=== PATIENT | male | born 1965 | race Caucasian/White ===

== ENCOUNTER → 2019-10-18 10:45 | Outpatient (BNVA) | payer MEDICAID, SELFPAY | PROVIDERS: Family Provider Nurse Practitioner; PCP Nurse Practitioner; Visit Provider Specialist | DX: G40.309 Generalized idiopathic epilepsy and epileptic syndromes, not intractable, without status epilepticus (principal); F17.210 Nicotine dependence, cigarettes, uncomplicated | CPT/HCPCS: 99213 ==

== ENCOUNTER → 2019-10-24 14:40 | Outpatient (BNVA) | payer OTHER, SELFPAY | PROVIDERS: Family Provider Nurse Practitioner; PCP Nurse Practitioner; Visit Provider Psychiatry & Neurology Psychiatry | DX: F41.1 Generalized anxiety disorder (principal) | CPT/HCPCS: 80061; 83036 ==

== ENCOUNTER → 2019-10-27 10:42 | Outpatient (BNVA) | payer MEDICAID, SELFPAY | PROVIDERS: Family Provider Nurse Practitioner; PCP Nurse Practitioner; Visit Provider Nurse Practitioner | DX: I10 Essential (primary) hypertension (principal); K21.9 Gastro-esophageal reflux disease without esophagitis; N40.0 Benign prostatic hyperplasia without lower urinary tract symptoms | CPT/HCPCS: 80053; 80061; 81003 ==

== ENCOUNTER → 2019-11-16 13:34 | Outpatient (BNVA) | payer MEDICAID, SELFPAY | PROVIDERS: Family Provider Nurse Practitioner; PCP Nurse Practitioner; Visit Provider Counselor Professional | DX: F41.1 Generalized anxiety disorder (principal); F43.12 Post-traumatic stress disorder, chronic; F33.1 Major depressive disorder, recurrent, moderate | CPT/HCPCS: 90834 ==

== ENCOUNTER → 2019-11-28 08:30 | Outpatient (BNVA) | payer MEDICAID, SELFPAY | PROVIDERS: Family Provider Nurse Practitioner; PCP Nurse Practitioner; Visit Provider Psychiatry & Neurology Psychiatry | DX: F43.9 Reaction to severe stress, unspecified (principal); F32.9 Major depressive disorder, single episode, unspecified | CPT/HCPCS: 99204 ==

== ENCOUNTER → 2019-11-29 10:49 | Outpatient (BNVA) | payer MEDICAID, SELFPAY | PROVIDERS: Family Provider Nurse Practitioner; PCP Nurse Practitioner; Visit Provider Nurse Practitioner | DX: K21.9 Gastro-esophageal reflux disease without esophagitis (principal); I10 Essential (primary) hypertension | CPT/HCPCS: 80053; 81000; 82607; 85025 ==

== ENCOUNTER → 2020-01-09 07:51 | Outpatient (BNVA) | payer MEDICAID, SELFPAY | PROVIDERS: Family Provider Nurse Practitioner; PCP Nurse Practitioner; Visit Provider Psychiatry & Neurology Psychiatry | DX: F43.9 Reaction to severe stress, unspecified (principal); F32.9 Major depressive disorder, single episode, unspecified | CPT/HCPCS: 99213 ==

== ENCOUNTER → 2020-06-04 10:20 | Outpatient (BNVA) | payer MEDICAID, SELFPAY ==
[2019-11-08 16:15] VITALS: BP 148/90; BMI 28.3
== END ==
PROVIDERS: Family Provider Nurse Practitioner; PCP Nurse Practitioner; Visit Provider Nurse Practitioner
DX: I10 Essential (primary) hypertension (principal)
CPT/HCPCS: 80053; 80061; 81000

== ENCOUNTER 2020-06-28 19:43 | Emergency (ER) | payer MEDICAID, SELFPAY ==
[2019-11-08 16:15] VITALS: BP 148/90; BMI 28.3
[2020-06-28 19:50] VITALS: PULSE 72; RESP 16; TEMP 36.7; O2SAT 95; BMI 26.4
--- NOTE | 2020-06-28 20:08 | W.ED.PSYCH ---
HPI - Psych General: Chief Complaint: Psychiatric Symptoms Stated Complaint: si Time Seen by Provider: 06/28/20 19:44 Source: patient and EMS Mode of arrival: EMS Limitations: no limitations History of Present Illness: HPI Narrative: Taz is a 55-year-old male who is here by EMS for depression. He states he sent a friend attacks and they called the police. Patient denies any active suicidal thoughts but states he has been depressed any has been out of his trazodone and Lexapro. Denies any worsening or improving factors. Associated symptoms: Reports depression Review of Systems Const: Denies: fever(s), chills, body aches or change in appetite Eyes: Denies: blurry vision or eye discomfort ENMT: Denies: throat pain or dental pain Card: Denies: chest pain Resp: Denies: dyspnea GI: Denies: abdominal pain, nausea, vomiting or diarrhea : Denies: dysuria Musc: Denies: neck pain or back pain Skin/Breast: Denies: rash Neuro: Denies: headache(s) Psych: Reports: depression Andreas/Lymph: Denies: easy bruising All/Imm: Denies: urticaria PFSH ED PFSH: Medical History BPH (benign prostatic hyperplasia) COPD (chronic obstructive pulmonary disease) Gastro-esophageal reflux disease without esophagitis Hepatitis C virus infection cured after antiviral drug therapy Hypertension Mixed hyperlipidemia Surgical History History of cataract extraction Both eyes Family History Mother , from MRSA No problems noted. Grandmother , cancer Cancer unknown type Grandfather , Emphysema Lung disease Emphysema Other CAD (coronary artery disease) Hypertension Stroke Denies family history of Diabetes Social History Smoking and tobacco status: current every day smoker cigarettes Quit status (tobacco): considering quitting Second hand smoke exposure: No Smoking risk assessment/counseling performed?: Yes Tobacco counseling given: counseling >3 minutes Alcohol intake: former Year of sobriety/quit date alcohol: 1987 Desire information about alcohol rehabilitation?: No Desire information about substance/drug rehabilitation?: No Adopted: No Caregiver/support person: No Lives independently: Yes Household members: none Housing: House Marital status: Single Number of children: 1 Number of grandchildren: 0 Highest education level completed: Associate Degree: Occupational, Technical, Vocational Program Education level details: Certification in [employer] service: No Current occupational status: disabled Current occupational exposures/hazards: No Pets and animals: Yes Pets & animals: cat(s) and dog(s) History of recent travel: No Leisure activites: exercise Sexually active: No Current gender identity: Male Leyla/Roman Catholic: Sabianist Special leyla needs: No Agree to transfusion: Yes Financial difficulty paying for basics: Somewhat Hard Physical Exam Const: COMMON NORMALS: no acute distress, patient oriented x3 and healthy appearing HENMT: COMMON NORMALS: normocephalic and atraumatic HEAD & SCALP: normocephalic and atraumatic Eye: COMMON NORMALS: Equal, round and reactive pupils present and EOMs intact bilaterally PUPIL: Yes Equal, round and reactive pupils present Neck/C-Spine: COMMON NORMALS: full ROM and supple Chest: COMMONS NORMALS: normal inspection of the chest and normal palpation of entire chest wall Resp: COMMON NORMALS: normal respiratory effort, No retractions, No use of accessory muscles and clear to auscultation bilaterally AUSCULTATION: clear to auscultation bilaterally Cardio: COMMON NORMALS: regular rate, regular rhythm and No murmurs present (Cardio) RATE: regular rate RHYTHM: regular rhythm GI: COMMON NORMALS: Normal to inspection, nondistended, normoactive bowel sounds present, Soft to palpation, non-tender and no masses PALPATION: Yes Soft to palpation Extremity: COMMON NORMALS: normal to inspection and full ROM Neuro: COMMON NORMALS: patient oriented x3, moves all extremities and no focal motor deficits Psych: COMMON NORMALS: mental status grossly normal, Normal thought process present and cooperative THOUGHT PROCESS: Normal thought process present Skin: COMMON NORMALS: no rashes or lesions noted and no wounds GENERAL SKIN EXAM: no rashes or lesions noted MDM - Psych MDM Narrative: Medical decision making narrative: Patient presents here with depression. Patient was seen by Dr. Ariel diaz in the ER patient is not actively suicidal and Dr. George feels he does not require admission. Will prescribe him his Lexapro and trazodone. He is to follow-up with his PCP and return to ER if he has any suicidal thoughts. Patient understands agrees this plan. Lab Data: Labs: Lab Results 06/28/20 06/28/20 Range/Units 20:21 20:21 WBC 12.4 H (4.0-10.0) 10^3/ uL RBC 4.74 (4.1-5.3) 10^6/u L Hgb 15.4 (11.7-16.6) g/dL Hct 47.2 (42.0-52.0) % MCV 99.6 H (80-94) fL MCH 32.5 (28.0-34.0) pg MCHC 32.6 (30.0-36.0) g/dL RDW 13.1 (12.1-15.1) % Plt Count 314 (130-400) 10^3/c mm MPV 9.8 (7.4-10.4) fL Neut % (Auto) 55.3 % Lymph % (Auto) 29.1 % [place] % (Auto) 10.5 % Eos % (Auto) 3.6 % Baso % (Auto) 0.9 % Neut # (Auto) 6.87 (1.8-7.7) 10^3/u L Lymph # (Auto) 3.6 (0.8-4.8) 10^3/u L [place] # (Auto) 1.3 H (0.2-0.9) 10^3/u L Eos # (Auto) 0.5 (0.0-0.8) 10^3/u L Baso # (Auto) 0.1 (0.0-0.1) 10^3/u L Nucleated RBC % (a uto) 0 % Nucleated RBCs # 0.0 /100WBC Sodium 143 (136-145) mmol/L Potassium 4.8 (3.5-5.1) mmol/L Chloride 110 H (98-107) mmol/L Carbon Dioxide 25 (22-29) mmol/L Anion Gap 12.8 (5-19) BUN 13 (6-20) mg/dL Creatinine 0.8 (0.7-1.2) mg/dL GFR Calculation 100.7 (90-130) mL/min Glucose 140 H (65-115) mg/dL Calculated Osmolal ity 298 H (285-295) mOsm/k g Calcium 9.2 (8.5-10.5) mg/dL Total Bilirubin 0.4 (0.15-1.2) mg/dL AST 26 (0-40) U/L ALT 16 (0-41) U/L Alkaline Phosphata se 88 (40-130) IU/L Total Protein 6.9 (6.6-8.7) g/dL Albumin 4.2 (3.5-5.2) g/dL Globulin 2.7 (1.3-4.6) g/dL Salicylates 1.6 L (3-10) mg/dL Acetaminophen < 5.0 L (10-30) ug/mL Ethyl Alcohol < 10 (0-10) mg/dL Discharge Plan Discharge Patient Disposition: Home Clinical Impression: Depression Qualifiers: Depression Type: unspecified Qualified Code(s): F32.9 - Major depressive disorder, single episode, unspecified Condition: Stable Prescriptions: New Lexapro 20 mg tablet 20 mg PO DAILY Qty: 30 RF: 0 trazodone 100 mg tablet 100 mg PO DAILY Qty: 30 RF: 0 No Action famotidine 40 mg tablet 40 mg PO DAILY Qty: 30 RF: 5 albuterol sulfate [ProAir HFA] 90 mcg/actuation HFA aerosol inhaler 2 puff INHALATION Q6H PRN (Reason: shortness of breath or wheezing) Qty: 18 RF: 5 lisinopril 5 mg tablet 5 mg PO DAILY Qty: 30 RF: 5 simvastatin 40 mg tablet 40 mg PO DAILY Qty: 30 RF: 5 tamsulosin [Flomax] 0.4 mg capsule 0.4 mg PO ONCE Qty: 30 RF: 5 trazodone 100 mg tablet 200 mg PO .HS Qty: 60 RF: 2 sertraline [Zoloft] 50 mg tablet 50 mg PO DAILY Qty: 30 RF: 2 levetiracetam [Keppra] 500 mg tablet 500 mg PO BID Qty: 60 RF: 6 zonisamide [Zonegran] 100 mg capsule 400 mg PO DAILY Qty: 120 RF: 5 Discharge Orders: Discharge Order (Routine); Ordered 06/28/20 Ordered By: Nilsa Mera Referrals: Arnol Robles, ACCOUNT LEADER-C [Primary Care Provider] - 1-3 days Patricio Aguilar MD [Physician] - 07/10/20 11:30 am Discharge Diet: Advance as tolerated Discharge Activity: Resume usual activity Patient Instructions: Depression (ED) Discharge Date/Time: 06/28/20 21:09 Coding Level of Care Code ED Grading Machine Operator for Chg Fwd Exam Comprehensive
[2020-06-28 20:41] LABS: Basophils # 0.1 10^3/uL (0.0-0.1); Basophils % 0.9 %; Eosinophils # 0.5 10^3/uL (0.0-0.8); Eosinophils % 3.6 %; Hematocrit 47.2 % (42.0-52.0); Hemoglobin 15.4 g/dL (11.7-16.6); Lymphocytes # 3.6 10^3/uL (0.8-4.8); Lymphocytes % 29.1 %; Mean Corpuscular HGB Conc 32.6 g/dL (30.0-36.0); Mean Corpuscular Hemoglobin 32.5 pg (28.0-34.0); Mean Corpuscular Volume 99.6 fL (80-94); Mean Platelet Volume 9.8 fL (7.4-10.4); Monocytes # 1.3 10^3/uL (0.2-0.9); Monocytes % 10.5 %; Neutrophils # 6.87 10^3/uL (1.8-7.7); Neutrophils % 55.3 %; Nucleated Red Blood Cells % 0 %; Platelet Count 314 10^3/cmm (130-400); Red Blood Count 4.74 10^6/uL (4.1-5.3); Red Cell Distribution Width 13.1 % (12.1-15.1); White Blood Count 12.4 10^3/uL (4.0-10.0)
[2020-06-28] MEDS: LORazepam 1 mg Tablet PO (20:58)
[2020-06-28 21:08] VITALS: PULSE 76; RESP 16; O2SAT 95
[2020-06-28 21:09] LABS: Alanine Aminotransferase 16 U/L (0-41); Albumin Level 4.2 g/dL (3.5-5.2); Alkaline Phosphatase 88 IU/L (40-130); Anion Gap 12.8 (5-19); Aspartate Amino Transferase 26 U/L (0-40); Blood Urea Nitrogen 13 mg/dL (6-20); Calcium 9.2 mg/dL (8.5-10.5); Carbon Dioxide 25 mmol/L (22-29); Chloride 110 mmol/L (98-107); Globulin 2.7 g/dL (1.3-4.6); Glomerular Filtration Rate 100.7 mL/min (90-130); Glucose 140 mg/dL (65-115); Osmolality Calculated 298 mOsm/kg (285-295); Potassium 4.8 mmol/L (3.5-5.1); Salicylate 1.6 mg/dL (3-10); Sodium 143 mmol/L (136-145); Total Bilirubin 0.4 mg/dL (0.15-1.2); Total Protein 6.9 g/dL (6.6-8.7)
[2020-06-28 21:17] LABS: Acetaminophen < 5.0 ug/mL (10-30); Alcohol Level < 10 mg/dL (0-10)
== END 2020-06-28 21:09 | disposition home or self-care (01) ==
PROVIDERS: Emergency Provider Emergency Medicine; Family Provider Nurse Practitioner; PCP Nurse Practitioner
DX: F32.9 Major depressive disorder, single episode, unspecified (principal); J44.9 Chronic obstructive pulmonary disease, unspecified; Z86.19 Personal history of other infectious and parasitic diseases; I10 Essential (primary) hypertension; E78.2 Mixed hyperlipidemia; F17.210 Nicotine dependence, cigarettes, uncomplicated
CPT/HCPCS: 12345; 80053; 80307; 85025; 99281; 99283

== ENCOUNTER → 2020-07-10 08:09 | Outpatient (BNVA) | payer MEDICAID, SELFPAY ==
[2019-11-08 16:15] VITALS: BP 148/90; BMI 28.3
== END ==
PROVIDERS: Family Provider Nurse Practitioner; PCP Nurse Practitioner; Visit Provider Psychiatry & Neurology Psychiatry
DX: F32.9 Major depressive disorder, single episode, unspecified (principal); F43.9 Reaction to severe stress, unspecified
CPT/HCPCS: 99213

== ENCOUNTER 2020-07-14 20:03 | Inpatient (IN) | payer MEDICAID, SELFPAY ==
[2019-11-08 16:15] VITALS: BP 148/90; BMI 28.3
[2020-07-14 20:07] VITALS: BP 133/89; PULSE 69; RESP 16; TEMP 36.7; O2SAT 96; BMI 26.7
[2020-07-14 20:39] LABS: Basophils # 0.1 10^3/uL (0.0-0.1); Basophils % 0.7 %; Eosinophils # 0.4 10^3/uL (0.0-0.8); Eosinophils % 2.3 %; Hematocrit 47.2 % (42.0-52.0); Hemoglobin 15.8 g/dL (11.7-16.6); Lymphocytes % 23.6 %; Mean Corpuscular HGB Conc 33.5 g/dL (30.0-36.0); Mean Corpuscular Hemoglobin 32.6 pg (28.0-34.0); Mean Corpuscular Volume 97.3 fL (80-94); Mean Platelet Volume 9.9 fL (7.4-10.4); Monocytes # 1.5 10^3/uL (0.2-0.9); Monocytes % 8.8 %; Neutrophils % 64.1 %; Nucleated Red Blood Cells % 0 %; Platelet Count 298 10^3/cmm (130-400); Red Blood Count 4.85 10^6/uL (4.1-5.3); Red Cell Distribution Width 12.7 % (12.1-15.1); White Blood Count 17.1 10^3/uL (4.0-10.0)
[2020-07-14 20:59] LABS: Alanine Aminotransferase 19 U/L (0-41); Albumin Level 4.3 g/dL (3.5-5.2); Alkaline Phosphatase 86 IU/L (40-130); Anion Gap 14.8 (5-19); Aspartate Amino Transferase 17 U/L (0-40); Blood Urea Nitrogen 13 mg/dL (6-20); Calcium 9.2 mg/dL (8.5-10.5); Carbon Dioxide 21 mmol/L (22-29); Chloride 107 mmol/L (98-107); Globulin 2.6 g/dL (1.3-4.6); Glomerular Filtration Rate 77.9 mL/min (90-130); Glucose 95 mg/dL (65-115); Osmolality Calculated 288 mOsm/kg (285-295); Potassium 3.8 mmol/L (3.5-5.1); Sodium 139 mmol/L (136-145); Total Bilirubin 0.2 mg/dL (0.15-1.2); Total Protein 6.9 g/dL (6.6-8.7)
[2020-07-14 21:08] LABS: Acetaminophen < 5.0 ug/mL (10-30); Alcohol Level < 10 mg/dL (0-10); Salicylate < 0.3 mg/dL (3-10)
--- NOTE | 2020-07-14 21:27 | XRR_ITS ---
PROCEDURE INFORMATION: Exam: XR Chest, 1 View Exam date and time: 07/14/2020 9:41 PM Age: 55 years old Clinical indication: Abnormal findings; Abnormal diagnostic tests; Other: Leukocytosis TECHNIQUE: Imaging protocol: XR of the chest Views: 1 view. COMPARISON: CR Chest 2 views* 10300 07/26/2017 10:50 PM FINDINGS: Lungs: A few linear opacities are present in the lung bases likely representing atelectasis. Increased peribronchial markings are seen, findings could represent mild bronchitis. Pleural space: Unremarkable. No pleural effusion. No pneumothorax. Heart/Mediastinum: Unremarkable. No cardiomegaly. Bones/joints: Unremarkable. XR/XR chest 1V [id number] IMPRESSION: 1. Increased peribronchial markings could represent bronchitis. 2. Linear opacities in the lower hemithoraces likely represents atelectasis.
--- NOTE | 2020-07-14 21:36 | W.ED.PSYCH ---
HPI - Psych General: Chief Complaint: Psychiatric Symptoms Stated Complaint: SI Time Seen by Provider: 07/14/20 20:28 History of Present Illness: HPI Narrative: 55-year-old gentleman with a history of depression. He was here last week in the ER and seen by psychiatry in the emergency department for depression. At that point, he was not suicidal. He comes back in this evening reporting having suicidal thoughts. He lost custody of his daughter had a hearing this week, and states he cannot live without her. He does not at this point have a specific plan. Associated symptoms: Deny auditory hallucinations or visual hallucinations Review of Systems Const: Denies: fever(s) or chills Eyes: Denies: change in vision ENMT: Denies: odynophagia, post nasal drip or sinus pain Card: Denies: chest pain, palpitations or irregular heart rhythm Resp: Denies: dyspnea, productive cough, non-productive cough or wheezing GI: Denies: abdominal pain, nausea or vomiting : Denies: difficulty urinating or hematuria Musc: Denies: neck pain or back pain Skin/Breast: Denies: rash or erythema Neuro: Denies: headache(s), dizziness, vertigo or seizure-like activity Psych: Reports: anxiety; Denies: visual hallucinations or auditory hallucinations PFSH ED PFSH: Medical History (Updated 07/14/20 @ 21:45 by Jose Maria Best DO) BPH (benign prostatic hyperplasia) COPD (chronic obstructive pulmonary disease) Gastro-esophageal reflux disease without esophagitis Hepatitis C virus infection cured after antiviral drug therapy Hypertension Mixed hyperlipidemia Surgical History History of cataract extraction Both eyes Family History Mother , from MRSA No problems noted. Grandmother , cancer Cancer unknown type Grandfather , Emphysema Lung disease Emphysema Other CAD (coronary artery disease) Hypertension Stroke Denies family history of Diabetes Social History Smoking and tobacco status: current every day smoker cigarettes Quit status (tobacco): considering quitting Second hand smoke exposure: No Smoking risk assessment/counseling performed?: Yes Tobacco counseling given: counseling >3 minutes Alcohol intake: former Year of sobriety/quit date alcohol: 1987 Desire information about alcohol rehabilitation?: No Desire information about substance/drug rehabilitation?: No Adopted: No Caregiver/support person: No Lives independently: Yes Household members: none Housing: House Marital status: Single Number of children: 1 Number of grandchildren: 0 Highest education level completed: Associate Degree: Occupational, Technical, Vocational Program Education level details: Certification in [employer] technology service: No Current occupational status: disabled Current occupational exposures/hazards: No Pets and animals: Yes Pets & animals: cat(s) and dog(s) History of recent travel: No Leisure activites: exercise Sexually active: No Current gender identity: Male Leyla/Pentecostal: Restorationism Special leyla needs: No Agree to transfusion: Yes Financial difficulty paying for basics: Somewhat Hard Physical Exam Const: GENERAL APPEARANCE: well developed ORIENTATION/CONSCIOUSNESS: Yes oriented to person, Yes oriented to place and Yes oriented to time HENMT: COMMON NORMALS: normocephalic, external ears normal and Normal external nose present HEAD & SCALP: normocephalic; no scalp tenderness FACE & SINUS: normal facial exam NOSE: Normal external nose present and No nasal discharge present EXTERNAL EAR: Yes external ears normal Eye: COMMON NORMALS: Equal, round and reactive pupils present, EOMs intact bilaterally and conjunctivae normal EYELID: eyelids normal CONJUNCTIVA: Yes conjunctivae normal PUPIL: Yes Equal, round and reactive pupils present Neck/C-Spine: GENERAL: No tracheal deviation Chest: COMMONS NORMALS: normal inspection of the chest CHEST: No tenderness Resp: COMMON NORMALS: clear to auscultation bilaterally EFFORT & INSPECTION: No tachypneic, No respiratory distress, No retractions, No uses accessory muscles and No tracheal deviation AUSCULTATION: clear to auscultation bilaterally, no rhonchi, no wheezes and lung sounds not diminished Cardio: COMMON NORMALS: regular rate and regular rhythm RATE: regular rate RHYTHM: regular rhythm HEART SOUNDS: no murmurs PERIPHERAL PULSES: radial pulses present GI: INSPECTION: No abdominal distension AUSCULTATION: No Hyperactive bowel sounds present and No Hypoactive bowel sounds present PALPATION: No Guarding due to palpation present (GI) and No Rigid due to palpation PERCUSSION: no dullness to percussion and no tympanic to percussion Neuro: SENSORIUM/ORIENTATION: Yes oriented to person, Yes oriented to place and Yes oriented to time Psych: COMMON NORMALS: speech normal APPEARANCE: Yes grossly normal ATTITUDE: Yes calm ACTIVITY/MOTOR BEHAVIOR: Yes appropriate eye contact SPEECH: Yes normal speech MOOD & AFFECT: Yes depressed mood THOUGHT PROCESS: No disorganized and No confused THOUGHT CONTENT: Yes Suicidality present ATTENTION/CONCENTRATION: Yes attention grossly intact and Yes concentration grossly intact MEMORY/COGNITION: Yes memory grossly intact and Yes cognition grossly intact INSIGHT: Fair insight present (Psych) JUDGEMENT: Fair judgement present (Psych) Skin: COMMON NORMALS: no rashes or lesions noted GENERAL SKIN EXAM: no rashes or lesions noted MDM - Psych MDM Narrative: Medical decision making narrative: Depression with suicidal ideation. This patient has a white blood cell count of 17, but without left shift. There is no evidence of infection, no history of fever, his chest x-ray is clear. Urine is pending. Discussed admission with psychiatry, they are willing to admit. Lab Data: Labs: Lab Results 07/14/20 07/14/20 Range/Units 20:24 20:24 WBC 17.1 H (4.0-10.0) 10^3/ uL RBC 4.85 (4.1-5.3) 10^6/u L Hgb 15.8 (11.7-16.6) g/dL Hct 47.2 (42.0-52.0) % MCV 97.3 H (80-94) fL MCH 32.6 (28.0-34.0) pg MCHC 33.5 (30.0-36.0) g/dL RDW 12.7 (12.1-15.1) % Plt Count 298 (130-400) 10^3/c mm MPV 9.9 (7.4-10.4) fL Neut % (Auto) 64.1 % Lymph % (Auto) 23.6 % [place] % (Auto) 8.8 % Eos % (Auto) 2.3 % Baso % (Auto) 0.7 % Neut # (Auto) 11.00 H (1.8-7.7) 10^3/u L Lymph # (Auto) 4.0 (0.8-4.8) 10^3/u L [place] # (Auto) 1.5 H (0.2-0.9) 10^3/u L Eos # (Auto) 0.4 (0.0-0.8) 10^3/u L Baso # (Auto) 0.1 (0.0-0.1) 10^3/u L Nucleated RBC % (a uto) 0 % Nucleated RBCs # 0.0 /100WBC Sodium 139 (136-145) mmol/L Potassium 3.8 (3.5-5.1) mmol/L Chloride 107 (98-107) mmol/L Carbon Dioxide 21 L (22-29) mmol/L Anion Gap 14.8 (5-19) BUN 13 (6-20) mg/dL Creatinine 1.0 (0.7-1.2) mg/dL GFR Calculation 77.9 L (90-130) mL/min Glucose 95 (65-115) mg/dL Calculated Osmolal ity 288 (285-295) mOsm/k g Calcium 9.2 (8.5-10.5) mg/dL Total Bilirubin 0.2 (0.15-1.2) mg/dL AST 17 (0-40) U/L ALT 19 (0-41) U/L Alkaline Phosphata se 86 (40-130) IU/L Total Protein 6.9 (6.6-8.7) g/dL Albumin 4.3 (3.5-5.2) g/dL Globulin 2.6 (1.3-4.6) g/dL Salicylates < 0.3 L (3-10) mg/dL Acetaminophen < 5.0 L (10-30) ug/mL Ethyl Alcohol < 10 (0-10) mg/dL Discharge Plan Discharge Patient Disposition: Admitted As Inpatient Admit Provider: Abrahan George Clinical Impression: Suicidal ideation Condition: Stable Referrals: Arnol Robles FNP-C [Primary Care Provider] - Discharge Date/Time: 07/14/20 22:20 Coding Level of Care Code ED Spring Winder for Teresag Fwd Exam Comprehensive
[2020-07-14 21:57] LABS: Add Urine Microscopic? NO
[2020-07-14 22:11] VITALS: BP 119/95; PULSE 73; RESP 16; TEMP 36.8; O2SAT 96
[2020-07-14 22:20] LABS: Glucose Urine UA Norm (Normal); Protein Urine Neg (Negative); Specific Gravity, Urine 1.025 (1.005-1.030); Urine Appearance Clear (CLEAR); Urine Color Yellow (Yellow); pH Urine 5 (5-7)
[2020-07-14 22:21] LABS: Bilirubin Urine Neg (Negative); Blood Urine Neg (Negative); Ketones Urine Negative (Negative); Leukocyte Esterase Urine Negative (Negative); Nitrate Urine Negative (Negative); Urobilinogen Urine 1 mg/dL (Negative)
[2020-07-14 22:27] VITALS: BP 131/94; PULSE 98; RESP 18; TEMP 37.2; O2SAT 98
--- NOTE | 2020-07-14 22:27 | PC.NURSE ---
called report to SETH Key in NPU
[2020-07-14 22:37] LABS: Amphetamines Screen Urine Negative (Negative); Barbiturates Screen Urine Negative (Negative); Benzodiazepines Screen Urine Negative (Negative); Cocaine Screen Urine Negative (Negative); Opiate Screen Urine Negative (Negative); PCP Screen Urine Negative (Negative); THC Screen Urine Negative (Negative)
[2020-07-14 23:05] VITALS: BP 131/94; PULSE 98; RESP 18; TEMP 37.2; O2SAT 98
[2020-07-14] MEDS: trazodone 100 mg Tablet 200 MG PO (23:25)
[2020-07-14] MEDS: hyDROXYzine 25 mg Capsule 50 MG PO (23:26)
[2020-07-14] MEDS: tamsulosin 0.4 mg Capsule PO (23:26)
--- NOTE | 2020-07-14 23:58 | PC.NURSE ---
Skin assessment revealed no wounds or abnormalities.
[2020-07-15 02:33] VITALS: PULSE 88; RESP 18; O2SAT 95
[2020-07-15 06:00] VITALS: BP 116/77; PULSE 89; RESP 18; TEMP 36.7; O2SAT 96
[2020-07-15 07:40] VITALS: PULSE 89; RESP 16; O2SAT 95
[2020-07-15] MEDS: zonisamide 100 MG Capsule 400 MG PO (07:49)
[2020-07-15] MEDS: lisinopril 5 mg Tablet PO (07:50)
[2020-07-15] MEDS: atorvastatin 40 mg Tablet 20 MG PO (07:50)
[2020-07-15] MEDS: levETIRAcetam 500 mg Tablet PO ×2 (07:50→19:44)
[2020-07-15] MEDS: famotidine 20 mg Tablet 40 MG PO (07:50)
[2020-07-15] MEDS: sertraline 50 mg Tablet PO (07:50)
[2020-07-15 13:03] VITALS: BP 112/68; PULSE 81; RESP 17; TEMP 36.5; O2SAT 96
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
[2020-07-15] MEDS: trazodone 100 mg Tablet 200 MG PO (19:44)
[2020-07-15 22:00] VITALS: BP 117/68; PULSE 69; RESP 17; TEMP 36.6; O2SAT 95
[2020-07-16 06:00] VITALS: BP 110/66; PULSE 61; RESP 17; TEMP 36.7; O2SAT 96
[2020-07-16] MEDS: sertraline 100 mg Tablet PO (08:30)
[2020-07-16] MEDS: atorvastatin 40 mg Tablet 20 MG PO (08:30)
[2020-07-16] MEDS: lisinopril 5 mg Tablet PO (08:30)
[2020-07-16] MEDS: levETIRAcetam 500 mg Tablet PO ×2 (08:30→19:44)
[2020-07-16] MEDS: zonisamide 100 MG Capsule 400 MG PO (08:30)
[2020-07-16] MEDS: famotidine 20 mg Tablet 40 MG PO (08:30)
[2020-07-16 14:00] VITALS: BP 113/77; PULSE 68; RESP 20; TEMP 36.9; O2SAT 96
--- NOTE | 2020-07-16 16:15 | PM.NPN ---
Subjective NPU Subjective: Interval history: Taz presents today reporting that he is doing much better than he was doing when he got here. He reports that he sees Dr. Aguilar as an outpatient. He was really struggling with these feelings surrounding custody and his daughter. But he reports he started thinking about other things that he values including his dogs and other family and friends. He reports he also was lifted up by conversations with people on the unit and the treatment providers. He also reports that seeing other people that have similar challenges was also inspiring for him to focus himself back on being well and doing the best that he can. He was desirous of discharge but we discussed the risk benefits and alternatives of working with the treatment team an additional day so that we can have a clear sense that he is safe for discharge. Mental Status Exam MSE Comments: This is a well-nourished, well-developed white male in hospital scrubs with limited grooming and eye contact. Very poor dentition. No abnormal movements except for mild psychomotor retardation. Cooperative with exam and no acute distress. Speech was decreased rate and volume. Mood described as much better, affect subdued. Thought process organized. Thought content: Patient denied any suicidal or homicidal ideations, there were no delusions reported or noted, he denied any auditory or visual hallucinations. Attention and concentration were intact and memory appeared reliable but none were formally tested. He was alert and oriented x3. Insight and judgment appear fair and impulse control limited. Vitals/I&O/Wt Last Vital Signs Temp 98.5 F 07/16/20 14:00 Pulse 68 07/16/20 14:00 Resp 20 H 07/16/20 14:00 BP 113/77 07/16/20 14:00 Pulse Ox 96 07/16/20 14:00 Weight last 48 hrs Weight 82.1 kg Weight 82.1 kg Data NPU : 07/14/20 20:24 07/14/20 20:24 A&P Assessment and plan (1) Suicidal ideation: Status: Resolved (2) COPD (chronic obstructive pulmonary disease): Status: Chronic (3) Major depressive disorder, single episode, unspecified: Status: Chronic (4) Trauma and stressor-related disorder: Status: Acute (5) Gastro-esophageal reflux disease without esophagitis: Status: Chronic (6) Mixed hyperlipidemia: Status: Chronic (7) BPH (benign prostatic hyperplasia): Status: Chronic Qualifiers: Lower urinary tract symptom detail: urinary hesitancy (8) Hypertension: Status: Chronic Qualifiers: Hypertension type: essential hypertension Qualified Code(s): I10 - Essential (primary) hypertension (9) Generalized epilepsy: Status: Acute Additional A&P Information This is a 55-year-old white male with a history of depression, PTSD and significant medical challenges who presents reporting a decrease in thoughts to harm himself with reported greater clarity about the importance of him staying alive. 1. Continue current medication. Patient adjusting to the recent increase in his Zoloft. 2. Continue every 15 minute checks for safety. 3. Encourage individual, group and milieu therapy. 4. We will evaluate for safety for discharge. Will consider discharge in the morning after consultation with treatment team. Involuntary Hold Information 96 Hour Hold: 96 Hour Involuntary Admission: No Attestations NPU Medical Necessity Statement*: Inpatient hospitalization is medically necessary and the clinically appropriate intervention at this time. We will monitor medications and make changes as indicated. Likely length of stay 1 to 2 days. Coding Level of Care Code Acute Sustainable Products Marketing Manager for [facility] Fwd Diagnoses Suicidal ideation R45.851 COPD (chronic obstructive pulmonary disease) J44.9 Major depressive disorder, single episode, unspecified F32.9 Trauma and stressor-related disorder F43.9 Gastro-esophageal reflux disease without esophagitis K21.9 Mixed hyperlipidemia E78.2 BPH (benign prostatic hyperplasia) N40.0 Lower urinary tract symptom detail: urinary hesitancy Hypertension I10 Hypertension type: essential hypertension Generalized epilepsy G40.309
--- NOTE | 2020-07-16 16:51 | PC.RESP ---
Smoking Cessation and Pulmonary Rehab information sent to patient.
[2020-07-16] MEDS: trazodone 100 mg Tablet 200 MG PO (19:43)
[2020-07-16 22:00] VITALS: BP 108/74; PULSE 79; RESP 16; TEMP 36.8; O2SAT 96
[2020-07-17 06:00] VITALS: BP 92/65; PULSE 73; RESP 17; TEMP 36.7; O2SAT 94
[2020-07-17] MEDS: sertraline 100 mg Tablet PO (08:14)
[2020-07-17] MEDS: atorvastatin 40 mg Tablet 20 MG PO (08:14)
[2020-07-17] MEDS: levETIRAcetam 500 mg Tablet PO (08:14)
[2020-07-17] MEDS: famotidine 20 mg Tablet 40 MG PO (08:14)
[2020-07-17] MEDS: zonisamide 100 MG Capsule 400 MG PO (08:15)
[2020-07-17 10:00] VITALS: PULSE 75; RESP 16; O2SAT 98
--- NOTE | 2020-07-17 14:55 | PM.NDC ---
Diagnoses at Discharge Discharge Diagnosis (1) Suicidal ideation: Status: Resolved (2) COPD (chronic obstructive pulmonary disease): Status: Chronic (3) Major depressive disorder, single episode, unspecified: Status: Chronic (4) Trauma and stressor-related disorder: Status: Acute (5) Gastro-esophageal reflux disease without esophagitis: Status: Chronic (6) Mixed hyperlipidemia: Status: Chronic (7) BPH (benign prostatic hyperplasia): Status: Chronic Qualifiers: Lower urinary tract symptom detail: urinary hesitancy (8) Hypertension: Status: Chronic Qualifiers: Hypertension type: essential hypertension Qualified Code(s): I10 - Essential (primary) hypertension (9) Generalized epilepsy: Status: Acute Reason for Visit Reason for Visit: SI Brief History: Taz presented to the emergency department with the following report: Chief Complaint: Psychiatric Symptoms Stated Complaint: SI Time Seen by Provider: 07/14/20 20:28 History of Present Illness: HPI Narrative: 55-year-old gentleman with a history of depression. He was here last week in the ER and seen by psychiatry in the emergency department for depression. At that point, he was not suicidal. He comes back in this evening reporting having suicidal thoughts. He lost custody of his daughter had a hearing this week, and states he cannot live without her. He does not at this point have a specific plan. Associated symptoms: Deny auditory hallucinations or visual hallucinations. He was admitted to the neuropsychiatric unit for definitive treatment of those issues. Taz presents today reporting that he is doing much better than he was doing when he got here. He reports that he sees Dr. Aguilar as an outpatient. He was really struggling with these feelings surrounding custody and his daughter. But he reports he started thinking about other things that he values including his dogs and other family and friends. He reports he also was lifted up by conversations with people on the unit and the treatment providers. He also reports that seeing other people that have similar challenges was also inspiring for him to focus himself back on being well and doing the best that he can. He was desirous of discharge but we discussed the risk benefits and alternatives of working with the treatment team an additional day so that we can have a clear sense that he is safe for discharge. Hospital Course Hospital Course Taz presented to the emergency department endorsing depression, suicidal thoughts and feeling overwhelmed against the backdrop of multiple medical comorbidities. He was admitted to the neuropsychiatric unit for definitive treatment of those issues. On the unit he quickly acclimated to the individual, group and milieu therapies provided. He had medication adjustments including the increasing of his Zoloft to 100 mg p.o. every morning. He was able to contract for safety and demonstrated a marked improvement. During the hospitalization he had routine laboratory studies which were within normal limits except for few outliers. Additionally there was a general medical evaluation which was also within normal limits and revealed no new acute processes. Discharge summary: At the time of discharge, he was absent lethality or psychosis. His mood and anxiety were well managed. He endorsed a plan to follow-up with outpatient resources per the treatment team's recommendations. He was evaluated and deemed to be absent credible lethality and had achieved a maximum benefit from an inpatient hospitalization, so he was discharged. Involuntary Hold Information 96 Hour Hold: 96 Hour Involuntary Admission: No Mental Status Exam MSE Comments: This is a well-nourished, well-developed white male in hospital scrubs with adequate grooming and eye contact. Very poor dentition. No abnormal movements except for improving psychomotor retardation. Cooperative with exam in no acute distress. Speech was more normal rate and volume. Mood described as better, affect less subdued. Thought process organized. Thought content: Patient denied any suicidal or homicidal ideations, there were no delusions reported or noted, he denied any auditory or visual hallucinations. Attention and concentration were intact and memory appeared reliable but none were formally tested. He was alert and oriented x3. Insight and judgment appear fair, and improving and impulse control limited. Discharge Data Data Completed and Pending: Completed Studies During Hospitalization Category Date Time Status XR chest 1V [id number] Stat Exams 07/14/20 21:27 Completed Vitals: Last Vital Signs Temp 98.1 F 07/17/20 06:00 Pulse 75 07/17/20 15:17 Resp 16 07/17/20 15:17 BP 92/65 07/17/20 06:00 Pulse Ox 98 07/17/20 15:17 Discharge Plan Discharge Patient Disposition: Home Condition: Stable Prescriptions: New sertraline 100 mg Tablet 100 mg PO DAILY 30 Days Qty: 30 RF: 1 Continued albuterol sulfate [ProAir HFA] 90 mcg/actuation HFA aerosol inhaler 2 puff INHALATION Q6H PRN (Reason: shortness of breath or wheezing) Qty: 18 RF: 5 lisinopril 5 mg tablet 5 mg PO DAILY Qty: 30 RF: 5 simvastatin 40 mg tablet 40 mg PO DAILY Qty: 30 RF: 5 tamsulosin [Flomax] 0.4 mg capsule 0.4 mg PO ONCE Qty: 30 RF: 5 levetiracetam [Keppra] 500 mg tablet 500 mg PO BID Qty: 60 RF: 6 zonisamide [Zonegran] 100 mg capsule 400 mg PO DAILY Qty: 120 RF: 5 trazodone 100 mg tablet 200 mg PO .HS Qty: 60 RF: 2 Pepcid 40 mg tablet 40 mg PO DAILY RF: 0 Discontinued sertraline [Zoloft] 50 mg tablet 50 mg PO DAILY Qty: 30 RF: 2 Discharge Orders: Discharge Order (Routine); Ordered 07/17/20 Ordered By: Abrahan George Referrals: Arnol Robles FNP-C [Primary Care Provider] - Patricio Aguilar MD [Physician] - 08/21/20 10:00 am (this appointment is for psychiatric medication management. a referral for individual therapy has been requested. ) Discharge Diet: Regular Discharge Activity: Resume usual activity Patient Instructions: Sertraline (By mouth), Anxiety (DC) Discharge Attestations NPU Time Spent in Discharge Care*: less than 30 min Specific Discharge Activities: Specific discharge activities: educating patient, discussing with bilingual patient support caseworker/social workers/dc planners, documenting/other paperwork and evaluating patient/reviewing data Coding Level of Care Code Acute Film Laboratory Technician for [facility] Fwd Diagnoses Suicidal ideation R45.851 COPD (chronic obstructive pulmonary disease) J44.9 Major depressive disorder, single episode, unspecified F32.9 Trauma and stressor-related disorder F43.9 Gastro-esophageal reflux disease without esophagitis K21.9 Mixed hyperlipidemia E78.2 BPH (benign prostatic hyperplasia) N40.0 Lower urinary tract symptom detail: urinary hesitancy Hypertension I10 Hypertension type: essential hypertension Generalized epilepsy G40.309
[2020-07-17 15:17] VITALS: PULSE 75; RESP 16; O2SAT 98
== END 2020-07-17 17:11 | disposition home or self-care (01) | DRG 881 ==
LOC: ER 21:45 → NP 22:01
PROVIDERS: Family Medicine; Admitting Provider Psychiatry & Neurology Psychiatry; PCP Nurse Practitioner; Visit Provider Psychiatry & Neurology Psychiatry
DX: F32.9 Major depressive disorder, single episode, unspecified (principal); R45.851 Suicidal ideations; J44.9 Chronic obstructive pulmonary disease, unspecified; K21.9 Gastro-esophageal reflux disease without esophagitis; E78.2 Mixed hyperlipidemia; N40.1 Benign prostatic hyperplasia with lower urinary tract symptoms; R39.11 Hesitancy of micturition; I10 Essential (primary) hypertension; G40.409 Other generalized epilepsy and epileptic syndromes, not intractable, without status epilepticus; F17.210 Nicotine dependence, cigarettes, uncomplicated
CPT/HCPCS: 12345; 71045; 80053; 80306; 80307; 81003; 85025; 99284

== ENCOUNTER → 2020-08-21 07:39 | Outpatient (BNVA) | payer MEDICAID, SELFPAY ==
[2019-11-08 16:15] VITALS: BP 148/90; BMI 28.3
== END ==
PROVIDERS: PCP Nurse Practitioner; Visit Provider Psychiatry & Neurology Psychiatry
DX: F32.9 Major depressive disorder, single episode, unspecified (principal); F43.9 Reaction to severe stress, unspecified
CPT/HCPCS: 99213

== ENCOUNTER → 2020-11-14 09:09 | Outpatient (BNVA) | payer MEDICAID, SELFPAY ==
[2019-11-08 16:15] VITALS: BP 148/90; BMI 28.3
== END ==
PROVIDERS: PCP Nurse Practitioner; Visit Provider Nurse Practitioner
DX: M54.5 Low back pain (principal); I10 Essential (primary) hypertension; E78.2 Mixed hyperlipidemia; J44.9 Chronic obstructive pulmonary disease, unspecified; N40.0 Benign prostatic hyperplasia without lower urinary tract symptoms; K59.01 Slow transit constipation
CPT/HCPCS: 74018; 80053; 80061; 81000; 85025

== ENCOUNTER → 2023-11-10 11:20 | Outpatient (BNVA) | payer MEDICAID, SELFPAY ==
[2023-10-29 14:47] VITALS: BP 148/90; BMI 28.3
== END ==
PROVIDERS: PCP Nurse Practitioner; Visit Provider Nurse Practitioner
DX: E78.2 Mixed hyperlipidemia (principal); M79.2 Neuralgia and neuritis, unspecified
CPT/HCPCS: 80053; 80061; 82607; 84443; 85025

== ENCOUNTER → 2024-07-07 13:38 | Outpatient (BNVA) | payer MEDICAID, SELFPAY ==
[2023-10-29 14:47] VITALS: BP 148/90; BMI 28.3
== END ==
PROVIDERS: PCP Nurse Practitioner; Visit Provider Nurse Practitioner Family
DX: K64.9 Unspecified hemorrhoids (principal)
CPT/HCPCS: 85025

== ENCOUNTER → 2024-10-04 08:40 | Outpatient (BNVA) | payer MEDICAID, SELFPAY ==
[2023-10-29 14:47] VITALS: BP 148/90; BMI 28.3
== END ==
PROVIDERS: PCP Nurse Practitioner; Visit Provider Surgery
DX: K64.9 Unspecified hemorrhoids (principal); R03.0 Elevated blood-pressure reading, without diagnosis of hypertension
CPT/HCPCS: 99204

== ENCOUNTER 2024-10-13 08:39 | Day surgery (SDC) | payer MEDICAID, SELFPAY ==
[2023-10-29 14:47] VITALS: BP 148/90; BMI 28.3
[2024-10-13 09:02] VITALS: BMI 29.9
[2024-10-13] MEDS: sodium chloride 0.9% 500 ML 15 ML IV (09:09)
[2024-10-13 09:10] VITALS: BP 126/88; PULSE 84; RESP 18; TEMP 36.7; O2SAT 95
--- NOTE | 2024-10-13 09:15 | P.HPUD_ITS ---
Surgery/Procedure H&P Update DATE OF PROCEDURE: October 13, 2024 DATE H&P PERFORMED: 10/04/24 H&P UPDATE INFORMATION: I have reviewed H&P completed within last 30 days, I have examined patient prior to procedure, No changes to prior documentation and H&P is in [facility] [place] on date indicated PLANNED PROCEDURE: Operation Date: 10/13/24 11:15 Proposed Procedures p EGD 57735, 73747, G0105, K64.9, R10.9(Not Applicable) - Severino Durbin MD s Colonoscopy(Not Applicable) - Severino Durbin MD
--- NOTE | 2024-10-13 11:12 | ANES.PREANE2 ---
Pre-Anesthetic Assessment Height/Weight: Height 1.75 m Weight 92.079 kg Temp Pulse Resp BP Pulse Ox O2 Del Method 98.1 F 84 18 126/88 95 Room Air 10/13/24 09:10 10/13/24 09:10 10/13/24 09:10 10/13/24 09:10 10/13/24 09:10 10/13/24 09:10 Operation Date: 10/13/24 11:15 Proposed Procedures p EGD 21703, 23745, G0105, K64.9, R10.9(Not Applicable) - Severino Durbin MD s Colonoscopy(Not Applicable) - Severino Durbin MD Familial anesthetic complications: None Was Beta Anne-Marie taken within 24 hours: N/A Was Clonidine taken within 24 hours: N/A Last intake: Intake Last Liquid Date 10/12/24 Last Liquid Time 21:00 Last Solid Date 10/11/24 Social No alcohol and No tobacco Exam alert, oriented x 3, clear to auscultation bilaterally and regular rate & rhythm Airway Mallampati: Class II Dentition: other (no teeth) Pulmonary Chronic Obstructive Pulmonary Disease CV/HEM Hypertension Neuropsych Seizure (grand mal seizures, last one > 1 months ago, took his medicine the morning) Anesthetic Plan ASA status: 3 Anesthesia: MAC Risk of > 500 ml blood loss (7ml/kg in children): No Medications/Allergies Home Medications Medication Instructions Recorded Confirmed Last Taken Type albuterol sulfate 90 mcg/actuation 2 puff inhalation Q6H PRN 11/10/23 10/11/24 10/11/24 Rx aerosol inhaler (ProAir HFA) shortness of breath or wheezing #18 grams famotidine 40 mg tablet (Pepcid) 40 mg PO DAILY #30 tabs 11/10/23 10/11/24 10/13/24 Rx tamsulosin 0.4 mg capsule (Flomax) 0.4 mg PO DAILY #30 caps 08/01/24 10/11/24 10/13/24 Rx zonisamide 100 mg capsule 100 mg PO Q12H #60 caps 08/01/24 10/11/24 10/13/24 Rx (Zonegran) Allergies Allergy/AdvReac Type Severity Reaction Status Date / Time insect venom Allergy Intermediate swelling Verified 10/11/24 09:02 Current Medications Generic Name Dose Route Start Last Admin Trade Name Freq PRN Reason Stop Dose Admin Sodium Chloride 500 mls @ 15 mls/hr 10/13/24 08:58 10/13/24 09:09 Sodium Chloride 0.9% IV 10/14/24 08:57 15 mls/hr .Q24H PRN Administration COLONOSCOPY FLUIDS PFSH Anesthesia Medical History Neuropathic pain Feet COPD (chronic obstructive pulmonary disease) Gastro-esophageal reflux disease without esophagitis Mixed hyperlipidemia BPH (benign prostatic hyperplasia) Hepatitis C virus infection cured after antiviral drug therapy Hypertension Surgical History (Updated 10/04/24 @ 08:[address]) History of cataract extraction Both eyes Family History Mother , from MRSA No problems noted. Grandmother , cancer Cancer unknown type Grandfather , Emphysema Lung disease Emphysema Other CAD (coronary artery disease) Hypertension Stroke Denies family history of Diabetes Social History Smoking and tobacco/nicotine status: former use of tobacco/nicotine (2023) Quit status (tobacco/nicotine): has quit using Year quit tobacco: 2023 Second hand smoke exposure: No Alcohol intake: former Year of sobriety/quit date alcohol: 1986 Substance/Drug Use: former Date of last use: 1990 Adopted: No Caregiver/support person: No Lives independently: No Household members: none Housing: House Marital status: Single Number of children: 1 Number of grandchildren: 0 Highest education level completed: Associate Degree: Occupational, Technical, Vocational Program Education level details: Certification in [employer] service: No Current occupational status: disabled Current occupational exposures/hazards: No Pets and animals: Yes Pets & animals: cat(s) and dog(s) Leisure activites: exercise Sexually active: No Do you think of yourself as: Straight/Heterosexual Current gender identity: Male Leyla/Buddhism: Yazdanism Special leyla needs: No Agree to transfusion: Yes Data Anesthesia Cardiac Studies: No Data to Display
[2024-10-13 12:17] VITALS: BP 133/85; PULSE 68; RESP 14; TEMP 36.3; O2SAT 94
[2024-10-13 12:32] VITALS: BP 134/92; PULSE 64; RESP 16; O2SAT 95
[2024-10-13 12:50] VITALS: BP 137/92; PULSE 61; RESP 17; O2SAT 95
--- NOTE | 2024-10-13 13:20 | ANE.PACU2 ---
Inpatient post-anesthesia follow up: Airway intact: Yes Vital signs: Temperature 97.3 F Pulse Rate 61 Respiratory Rate 17 Blood Pressure 137/92 Pulse Oximetry 95 Oxygen Delivery Me thod Room Air Oxygen Flow Rate 5 Fraction of Inspir ed Oxygen Hydration adequate: Yes Nausea and vomiting: No Pain level: 1 Mental status: Baseline
[2024-10-19 08:35] LABS: Mismatch Repari Proteins-IHC See Report
== END 2024-10-13 13:20 | disposition home or self-care (01) ==
PROVIDERS: Visit Provider Surgery
PROC: 0DJ08ZZ Inspection of Upper Intestinal Tract, Via Natural or Artificial Opening Endoscopic (ICD-10-PCS; principal; 2024-10-13 11:15)
PROC: 0DJD8ZZ Inspection of Lower Intestinal Tract, Via Natural or Artificial Opening Endoscopic (ICD-10-PCS; CPT 45378; 2024-10-13 11:15)
DX: C20 Malignant neoplasm of rectum (principal); D12.5 Benign neoplasm of sigmoid colon; J44.9 Chronic obstructive pulmonary disease, unspecified; I10 Essential (primary) hypertension; K21.9 Gastro-esophageal reflux disease without esophagitis; E78.2 Mixed hyperlipidemia; Z87.891 Personal history of nicotine dependence; K44.9 Diaphragmatic hernia without obstruction or gangrene; K29.70 Gastritis, unspecified, without bleeding; K29.80 Duodenitis without bleeding; K64.9 Unspecified hemorrhoids; Z79.899 Other long term (current) drug therapy
CPT/HCPCS: 43239; 45380; 45385; 88305; 88341; 88342; J7040

== ENCOUNTER 2024-10-14 08:11 | Outpatient (CLI) | payer MEDICAID, SELFPAY ==
[2023-10-29 14:47] VITALS: BP 148/90; BMI 28.3
[2024-10-14 08:39] LABS: Basophils # 0.1 10^3/uL (0.0-0.1); Basophils % 0.7 %; Eosinophils # 0.2 10^3/uL (0.0-0.8); Eosinophils % 1.8 %; Hematocrit 45.4 % (37-53); Lymphocytes % 31.7 %; Mean Corpuscular HGB Conc 32.8 g/dL (30-55); Mean Corpuscular Hemoglobin 30.8 pg (27-33); Mean Corpuscular Volume 93.8 fl (82-101); Mean Platelet Volume 9.3 fL (7.4-10.4); Monocytes # 1.5 10^3/uL (0.2-0.9); Monocytes % 11.7 %; Neutrophils # 6.82 10^3/uL (1.8-7.7); Neutrophils % 53.7 %; Nucleated Red Blood Cells % 0 %; Platelet Count 291 10^3/cmm (157-399); Red Blood Count 4.84 10^6/uL (3.85-5.65); Red Cell Distribution Width 12.2 % (12.1-15.1)
[2024-10-14 09:04] LABS: Carcinoembryonic Antigen 2.1 ng/mL (0.0-4.7)
[2024-10-14 09:18] LABS: Anion Gap 15.1 (5-19); Blood Urea Nitrogen 14 mg/dL (6-20); Calcium 8.5 mg/dL (8.5-10.5); Carbon Dioxide 23 mmol/L (22-29); Chloride 103 mmol/L (98-107); Glomerular Filtration Rate 86.7 mL/min (90-130); Glucose 92 mg/dL (65-115); Osmolality Calculated 284 mOsm/kg (285-295); Potassium 4.1 mmol/L (3.5-5.1); Sodium 137 mmol/L (136-145)
== END 2024-10-14 08:12 | disposition home or self-care (01) ==
LOC: LAB 08:12
PROVIDERS: Visit Provider Surgery
DX: Z51.81 Encounter for therapeutic drug level monitoring (principal); Z79.1 Long term (current) use of non-steroidal anti-inflammatories (NSAID); C20 Malignant neoplasm of rectum
CPT/HCPCS: 36415; 80048; 82378; 85025

== ENCOUNTER 2024-12-12 09:00 | Oncology outpatient (recurring) (ONCR) | payer MEDICAID, SELFPAY ==
[2023-10-29 14:47] VITALS: BP 148/90; BMI 28.3
[2024-12-12 09:19] LABS: Basophils # 0.1 10^3/uL (0.0-0.1); Basophils % 0.8 %; Eosinophils # 0.3 10^3/uL (0.0-0.8); Eosinophils % 2.7 %; Hematocrit 45.6 % (37-53); Lymphocytes # 3.9 10^3/uL (0.8-4.8); Lymphocytes % 33.6 %; Mean Corpuscular HGB Conc 33.1 g/dL (30-55); Mean Corpuscular Hemoglobin 31.1 pg (27-33); Mean Corpuscular Volume 93.8 fl (82-101); Mean Platelet Volume 9.2 fL (7.4-10.4); Monocytes % 8.7 %; Neutrophils # 6.21 10^3/uL (1.8-7.7); Neutrophils % 53.7 %; Nucleated Red Blood Cells % 0 %; Platelet Count 278 10^3/cmm (157-399); Red Blood Count 4.86 10^6/uL (3.85-5.65); Red Cell Distribution Width 12.5 % (12.1-15.1); White Blood Count 11.57 10^3/uL (3.29-11.43)
[2024-12-12 09:33] LABS: Alanine Aminotransferase 16 U/L (0-41); Alkaline Phosphatase 72 U/L (40-130); Anion Gap 15.2 (5-19); Aspartate Amino Transferase 12 U/L (0-40); Blood Urea Nitrogen 14 mg/dL (6-20); Calcium 8.9 mg/dL (8.5-10.5); Carbon Dioxide 23 mmol/L (22-29); Chloride 104 mmol/L (98-107); Globulin 2.6 g/dL (1.3-4.6); Glomerular Filtration Rate 99.3 mL/min (90-130); Glucose 104 mg/dL (65-115); Osmolality Calculated 287 mOsm/kg (285-295); Potassium 4.2 mmol/L (3.5-5.1); Sodium 138 mmol/L (136-145); Total Bilirubin 0.3 mg/dL (0.15-1.2); Total Protein 6.6 g/dL (6.6-8.7)
== END 2024-12-12 23:59 | disposition home or self-care (01) ==
PROVIDERS: PCP Nurse Practitioner Family; Visit Provider Internal Medicine Medical Oncology
DX: Z53.9 Procedure and treatment not carried out, unspecified reason (principal); C20 Malignant neoplasm of rectum; Z87.891 Personal history of nicotine dependence
CPT/HCPCS: 36591; 80053; 85025; 99214

== ENCOUNTER 2025-01-10 09:15 | Oncology outpatient (recurring) (ONCR) | payer MEDICAID, SELFPAY ==
[2023-10-29 14:47] VITALS: BP 148/90; BMI 28.3
[2025-01-02 14:03] LABS: Basophils # 0.1 10^3/uL (0.0-0.1); Basophils % 0.8 %; Eosinophils # 0.4 10^3/uL (0.0-0.8); Hematocrit 42.5 % (37-53); Lymphocytes # 4.1 10^3/uL (0.8-4.8); Lymphocytes % 33.5 %; Mean Corpuscular HGB Conc 33.9 g/dL (30-55); Mean Corpuscular Hemoglobin 31.4 pg (27-33); Mean Corpuscular Volume 92.8 fl (82-101); Mean Platelet Volume 9.2 fL (7.4-10.4); Monocytes # 1.1 10^3/uL (0.2-0.9); Monocytes % 9.1 %; Neutrophils # 6.47 10^3/uL (1.8-7.7); Nucleated Red Blood Cells % 0 %; Platelet Count 280 10^3/cmm (157-399); Red Blood Count 4.58 10^6/uL (3.85-5.65); Red Cell Distribution Width 12.5 % (12.1-15.1); White Blood Count 12.19 10^3/uL (3.29-11.43)
[2025-01-02 14:21] LABS: Alanine Aminotransferase 15 U/L (0-41); Alkaline Phosphatase 80 U/L (40-130); Anion Gap 12.4 (5-19); Aspartate Amino Transferase 14 U/L (0-40); Blood Urea Nitrogen 9 mg/dL (6-20); Calcium 8.2 mg/dL (8.5-10.5); Carbon Dioxide 24 mmol/L (22-29); Chloride 100 mmol/L (98-107); Creatinine Clr Calc Pharmacy 113.5985; Globulin 2.3 g/dL (1.3-4.6); Glomerular Filtration Rate 99.3 mL/min (90-130); Glucose 142 mg/dL (65-115); Osmolality Calculated 277 mOsm/kg (285-295); Potassium 3.4 mmol/L (3.5-5.1); Sodium 133 mmol/L (136-145); Total Bilirubin 0.2 mg/dL (0.15-1.2); Total Protein 6.3 g/dL (6.6-8.7)
[2025-01-03 08:22] VITALS: BP 158/93; PULSE 66; RESP 17; TEMP 36.9; O2SAT 97
[2025-01-03] MEDS: dextrose 5% 250 ML 75 ML IV (08:46)
[2025-01-03] MEDS: dexamethasone 4 mg/mL INJ 5 mL 12 MG IVP (08:46)
[2025-01-03] MEDS: palonosetron 0.25 mg/5 mL SDV IVP (08:46)
[2025-01-03] MEDS: oxaliplatin 176 MG in dextrose 5% 250 ML 142.6 MG IV (09:18)
[2025-01-03] MEDS: leucovorin 830 MG in dextrose 5% 250 ML 62.5 MG IV (09:19)
[2025-01-03 09:42] VITALS: BP 145/81; PULSE 62; RESP 17; TEMP 36.8; O2SAT 97
[2025-01-03 10:28] VITALS: BP 135/80; PULSE 60; RESP 17; TEMP 36.7; O2SAT 97
[2025-01-03] MEDS: fluorouraciL 50 mg/ml MDV 100 mL 850 MG IVP (12:12)
[2025-01-03] MEDS: ELASTOMERIC PUMP PUMP IV (12:13)
[2025-01-03] MEDS: FLUOROURACIL IV (12:13)
[2025-01-03 12:32] VITALS: BP 146/77; PULSE 75; RESP 17; TEMP 36.6; O2SAT 97
[2025-01-10 09:45] LABS: Basophils # 0.1 10^3/uL (0.0-0.1); Basophils % 0.5 %; Eosinophils # 0.6 10^3/uL (0.0-0.8); Eosinophils % 6.4 %; Hematocrit 42.6 % (37-53); Lymphocytes # 3.7 10^3/uL (0.8-4.8); Lymphocytes % 37.9 %; Mean Corpuscular Hemoglobin 31.4 pg (27-33); Mean Corpuscular Volume 92.2 fl (82-101); Mean Platelet Volume 9.3 fL (7.4-10.4); Monocytes % 9.8 %; Neutrophils # 4.41 10^3/uL (1.8-7.7); Neutrophils % 44.8 %; Nucleated Red Blood Cells % 0 %; Platelet Count 222 10^3/cmm (157-399); Red Blood Count 4.62 10^6/uL (3.85-5.65); Red Cell Distribution Width 12.4 % (12.1-15.1); White Blood Count 9.85 10^3/uL (3.29-11.43)
[2025-01-10 10:03] LABS: Alanine Aminotransferase 18 U/L (0-41); Albumin Level 3.8 g/dL (3.5-5.2); Alkaline Phosphatase 76 U/L (40-130); Anion Gap 11.7 (5-19); Aspartate Amino Transferase 14 U/L (0-40); Blood Urea Nitrogen 15 mg/dL (6-20); Calcium 8.4 mg/dL (8.5-10.5); Carbon Dioxide 25 mmol/L (22-29); Chloride 101 mmol/L (98-107); Creatinine Clr Calc Pharmacy 112.5655; Globulin 2.5 g/dL (1.3-4.6); Glomerular Filtration Rate 99.3 mL/min (90-130); Glucose 106 mg/dL (65-115); Osmolality Calculated 279 mOsm/kg (285-295); Potassium 3.7 mmol/L (3.5-5.1); Sodium 134 mmol/L (136-145); Total Bilirubin 0.4 mg/dL (0.15-1.2); Total Protein 6.3 g/dL (6.6-8.7)
== END 2025-01-11 23:59 | disposition home or self-care (01) ==
PROVIDERS: Internal Medicine Medical Oncology; Nurse Practitioner Family; PCP Nurse Practitioner Family; Visit Provider Internal Medicine
DX: Z53.9 Procedure and treatment not carried out, unspecified reason; C20 Malignant neoplasm of rectum; Z87.891 Personal history of nicotine dependence; Z79.899 Other long term (current) drug therapy
CPT/HCPCS: 36591; 80053; 85025; 96375; 96409; 96413; 96415; 96416; 96523; 99214; 99215; J0640; J1100; J2469; J7060; J9190; J9263

== ENCOUNTER 2025-02-01 12:37 | Emergency (ER) | payer MEDICAID, SELFPAY ==
[2023-10-29 14:47] VITALS: BP 148/90; BMI 28.3
[2025-02-01 12:48] VITALS: BP 138/93; PULSE 89; RESP 16; TEMP 37.7; O2SAT 97
--- NOTE | 2025-02-01 14:26 | W.ED.RECABL ---
HPI - Recheck/Abnormal Lab/Rx General: Chief Complaint: Recheck/Abnormal Lab/Rx Stated Complaint: blood clot in neck Time Seen by Provider: 02/01/25 14:14 History of Present Illness: 59-year-old man with a history of rectal cancer who had surgery back in November and is now receiving chemotherapy who presents to the emergency room from radiology after it was discovered that he has a blood clot in his right jugular. He had been to [facility] in they did not find anything but then he went to get treatment today and they saw his neck was swollen and sent in for a CTA of his neck and chest. Concerned that this may be related to his port. He has had some cough with this. No headaches. Swelling on the right side of the neck. Minimal swelling down the shoulder. No shortness of breath. He is able to swallow. Related Data Home Medications ?Medication ?Instructions ?Recorded ?Confirmed albuterol sulfate 90 mcg/actuation 2 puff inhalation Q6H 02/01/25 02/01/25 aerosol inhaler Previous Rx's ?Medication ?Instructions ?Recorded polyethylene glycol 3350 17 gram 17 g PO DAILY #30 ea 10/13/24 oral powder packet (Miralax) famotidine 40 mg tablet (Pepcid) 40 mg PO DAILY #30 tabs 11/15/24 tamsulosin 0.4 mg capsule (Flomax) 0.4 mg PO DAILY #30 caps 11/15/24 lorazepam 1 mg tablet 0.5 - 1 mg (0.5 - 1 x 1 mg) PO Q6H 12/13/24 PRN severe nausea #30 tabs ondansetron HCl 4 mg tablet 4 mg PO Q6H PRN nausea and 12/13/24 vomiting #30 tabs prochlorperazine maleate 10 mg 10 mg PO Q4H PRN mild nausea #30 12/13/24 tablet (Compazine) tabs omeprazole 20 mg capsule,delayed 20 mg PO DAILY #30 caps 01/30/25 release apixaban 5 mg (74 tabs) tablets in 5 mg PO BID #74 ea 02/01/25 a dose pack (Eliquis DVT-PE Treat 30D Start) hydrocodone 5 mg-acetaminophen 325 1 tab PO Q6H PRN pain #20 tabs 02/01/25 mg tablet polyethylene glycol 3350 17 17 g PO DAILY #510 grams 02/01/25 gram/dose oral powder (Miralax) Allergies Allergy/AdvReac Type Severity Reaction Status Date / Time insect venom Allergy Intermediate swelling Verified 02/01/25 08:08 Review of Systems Narrative: Constitutional symptoms: Negative except as documented in HPI. Skin symptoms: Negative except as documented in HPI. Eye symptoms: Negative except as documented in HPI. ENMT symptoms: Negative except as documented in HPI. Respiratory symptoms: Negative except as documented in HPI. Cardiovascular symptoms: Negative except as documented in HPI. Gastrointestinal symptoms: Negative except as documented in HPI. Genitourinary symptoms: Negative except as documented in HPI. Musculoskeletal symptoms: Negative except as documented in HPI. Neurologic symptoms: Negative except as documented in HPI. Psychiatric symptoms: Negative except as documented in HPI. Endocrine symptoms: Negative except as documented in HPI. PFSH ED PFSH: Medical History Neuropathic pain Feet COPD (chronic obstructive pulmonary disease) Gastro-esophageal reflux disease without esophagitis Mixed hyperlipidemia BPH (benign prostatic hyperplasia) Hepatitis C virus infection cured after antiviral drug therapy Hypertension Surgical History History of cataract extraction Both eyes Family History Mother , from MRSA No problems noted. Grandmother , cancer Cancer unknown type Grandfather , Emphysema Lung disease Emphysema Other CAD (coronary artery disease) Hypertension Stroke Denies family history of Diabetes Social History Smoking and tobacco/nicotine status: former use of tobacco/nicotine Second hand smoke exposure: No Alcohol intake: former Year of sobriety/quit date alcohol: 1986 Substance/Drug Use: former Date of last use: 1990 Adopted: No Caregiver/support person: No Lives independently: No Household members: none Housing: House Marital status: Single Number of children: 1 Number of grandchildren: 0 Highest education level completed: Associate Degree: Occupational, Technical, Vocational Program Education level details: Certification in Telik service: No Current occupational status: disabled Current occupational exposures/hazards: No Pets and animals: Yes Pets & animals: cat(s) and dog(s) Leisure activites: exercise Sexually active: No Do you think of yourself as: Straight/Heterosexual Current gender identity: Male Leyla/Judaism: Anabaptist Special leyla needs: No Agree to transfusion: Yes Physical Exam Narrative: EXAM NARRATIVE: General: Alert, no acute distress. Skin: Warm, dry. Head: Normocephalic, atraumatic. Neck: Supple, trachea midline. Edema to the right side of the jaw and neck. Eye: Extraocular movements are intact. Ears, nose, mouth and throat: mucosa moist. Cardiovascular: Regular, Normal peripheral perfusion. Respiratory: Lungs are clear to auscultation, respirations are non-labored, breath sounds are equal, Symmetrical chest wall expansion. Gastrointestinal: Soft, Nontender, Non distended Musculoskeletal: Normal ROM, no deformity. Neurological: Alert and oriented, No focal neurological deficit observed. Psychiatric: Cooperative, appropriate mood & affect. Course Vital Signs: Vital signs: Vital Signs Temperature 99.9 F H 02/01/25 12:48 Pulse Rate 82 02/01/25 14:31 Respiratory Rate 17 02/01/25 14:31 Blood Pressure 125/94 02/01/25 14:31 Pulse Oximetry 97 02/01/25 14:31 Oxygen Delivery Me thod Room Air 02/01/25 12:48 MDM - Recheck/Abnormal Lab/Rx Medical Decision Making CTA of the neck: This was done earlier today. Shows jugular thrombosis and surrounding edema. This was reviewed and interpreted by myself the emergency room physician. I also reviewed the radiology report. Consultation: I spoke with Dr. Jackson who is on-call for oncology and is this patient's oncologist. He recommends consultation with vascular surgery. Consultation: I spoke with Dr. Rosen with vascular surgery at [facility]. He recommends conservative management with anticoagulation and follow-up next week. He says recommendations are to not remove the port initially. And just to anticoagulate.\ Consultation: I spoke again with Dr. Grande who agrees with plan to send the patient home on anticoagulation and follow with vascular surgery. Lab review: I reviewed and interpreted lab work personally. No leukocytosis. More importantly no leukopenia. No anemia. No renal failure. Reexamination: Patient remained stable. No increased work of breathing. No altered mental status. No focal motor deficits. Assessment and plan: Jugular vein thrombosis ?First dose Eliquis in the emergency room. Providing with some pain medication for now. - Discharged home - Discussed plan with patient. Answered any questions. - Evaluation and treatment of this problem were appropriate in the emergency setting. Lab Data 02/01/25 14:39 02/01/25 14:39 Laboratory Results WBC 10.92 10^3/uL (3.29-11.43) 02/01/25 14:39 RBC 4.49 10^6/uL (3.85-5.65) 02/01/25 14:39 Hgb 14.10 g/dL (11.27-16.99) 02/01/25 14:39 Hct 42.1 % (37-53) 02/01/25 14:39 MCV 93.8 fl (82-101) 02/01/25 14:39 MCH 31.4 pg (27-33) 02/01/25 14:39 MCHC 33.5 g/dL (30-55) 02/01/25 14:39 RDW 12.7 % (12.1-15.1) 02/01/25 14:39 Plt Count 235 10^3/cmm (157-399) 02/01/25 14:39 MPV 9.1 fL (7.4-10.4) 02/01/25 14:39 Neut % (Auto) 44.0 % 02/01/25 14:39 Lymph % (Auto) 30.7 % 02/01/25 14:39 Evangeline % (Auto) 22.3 % 02/01/25 14:39 Eos % (Auto) 1.6 % 02/01/25 14:39 Baso % (Auto) 0.5 % 02/01/25 14:39 Neut # (Auto) 4.81 10^3/uL (1.8-7.7) 02/01/25 14:39 Lymph # (Auto) 3.4 10^3/uL (0.8-4.8) 02/01/25 14:39 Evangeline # (Auto) 2.4 10^3/uL (0.2-0.9) H 02/01/25 14:39 Eos # (Auto) 0.2 10^3/uL (0.0-0.8) 02/01/25 14:39 Baso # (Auto) 0.1 10^3/uL (0.0-0.1) 02/01/25 14:39 Nucleated RBC % (auto) 0 % 02/01/25 14:39 Nucleated RBCs # 0.0 /100WBC 02/01/25 14:39 PT 13.00 SECONDS (12.1-14.9) 02/01/25 14:39 INR 0.91 (0.8-1.2) 02/01/25 14:39 APTT 26.8 SECONDS (23.9-36.7) 02/01/25 14:39 Sodium 133 mmol/L (136-145) L 02/01/25 14:39 Potassium 4.1 mmol/L (3.5-5.1) 02/01/25 14:39 Chloride 100 mmol/L (98-107) 02/01/25 14:39 Carbon Dioxide 21 mmol/L (22-29) L 02/01/25 14:39 Anion Gap 16.1 (5-19) 02/01/25 14:39 BUN 10 mg/dL (6-20) 02/01/25 14:39 Creatinine 0.9 mg/dL (0.7-1.2) 02/01/25 14:39 GFR Calculation 86.7 mL/min (90-130) L 02/01/25 14:39 Glucose 97 mg/dL (65-115) 02/01/25 14:39 Calculated Osmolality 275 mOsm/kg (285-295) L 02/01/25 14:39 Lactic Acid 0.8 mmol/L (0.5-2.2) 02/01/25 14:39 Calcium 8.5 mg/dL (8.5-10.5) 02/01/25 14:39 Total Bilirubin 0.6 mg/dL (0.15-1.2) 02/01/25 14:39 AST 16 U/L (0-40) 02/01/25 14:39 ALT 18 U/L (0-41) 02/01/25 14:39 Alkaline Phosphatase 88 U/L (40-130) 02/01/25 14:39 C-Reactive Protein 31.7 mg/L (0.0-4.9) H 02/01/25 14:39 Total Protein 6.4 g/dL (6.6-8.7) L 02/01/25 14:39 Albumin 3.6 g/dL (3.5-5.2) 02/01/25 14:39 Globulin 2.8 g/dL (1.3-4.6) 02/01/25 14:39 All radiology interpretation(s) finalized by discharge Discharge Plan Discharge Patient Disposition: Home Clinical Impression: Acute internal jugular vein thrombosis Condition: Stable Prescriptions: New hydrocodone-acetaminophen 5-325 mg tablet 1 tab PO Q6H PRN (Reason: pain) Qty: 20 0RF polyethylene glycol 3350 [Miralax] 17 gram/dose powder 17 g PO DAILY Qty: 510 0RF Rx Instructions: Take 1 scoop daily while taking pain medications. Eliquis DVT-PE Treat 30D Start 5 mg (74 tabs) tablets,dose pack 5 mg PO BID Qty: 74 0RF Rx Instructions: 2 tabs (10 mg) BID x 7 days, then 1 tab BID No Action Pepcid 40 mg tablet 40 mg PO DAILY Qty: 30 5RF tamsulosin [Flomax] 0.4 mg capsule 0.4 mg PO DAILY Qty: 30 2RF ondansetron HCl 4 mg tablet 4 mg PO Q6H PRN (Reason: nausea and vomiting) Qty: 30 3RF prochlorperazine maleate [Compazine] 10 mg tablet 10 mg PO Q4H PRN (Reason: mild nausea) Qty: 30 3RF lorazepam 1 mg tablet 0.5 - 1 mg PO Q6H PRN (Reason: severe nausea) Qty: 30 3RF omeprazole 20 mg capsule,delayed release(DR/EC) 20 mg PO DAILY Qty: 30 0RF polyethylene glycol 3350 [Miralax] 17 gram powder in packet 17 g PO DAILY Qty: 30 2RF albuterol sulfate 90 mcg/actuation HFA aerosol inhaler 2 puff INHALATION Q6H Discharge Orders: Discharge ED (Routine); Ordered 02/01/25 Ordered By: America Callejas Referrals: Deni Javed MD [Hospitalist, Oncology] - 7-10 days Referral Note: Please call for follow-up visit. Kiran Rubio FNP [Primary Care Provider, Family Practice] Jim Rosen MD [Occupational Therapist, General Surgery] Referral Note: Please call Dr. Dr. Sarah Christensen [facility] and he will see you early next week. He is a vascular surgeon. If you prefer to see a vascular surgeon in [place] call Ruba or [facility]. Discharge Diet: As Directed Discharge Activity: Increase activity as tolerated Patient Instructions: Apixaban (By mouth) (Eliquis), Deep Vein Thrombosis (ED), Opioid Safety, Pain Management Activity Restrictions/Additional Instructions: Thank you for choosing [facility] for your healthcare needs today. You have been screened and evaluated and felt safe for discharge. Health conditions do change or evolve sometimes and as such it is important that you follow up with your Primary Doctor to be re checked, 3-5 days is a general good time frame for follow up. You are always welcome to return to the ED for re assessment if your symptoms are worsening or you have new concerns Print Language: Maltese Coding Level of Care Code ED Termite Control Representative for Socorro Morrison
[2025-02-01 14:31] VITALS: BP 125/94; PULSE 82; RESP 17; O2SAT 97
[2025-02-01 14:47] LABS: Basophils # 0.1 10^3/uL (0.0-0.1); Basophils % 0.5 %; Eosinophils # 0.2 10^3/uL (0.0-0.8); Eosinophils % 1.6 %; Hematocrit 42.1 % (37-53); Lymphocytes # 3.4 10^3/uL (0.8-4.8); Lymphocytes % 30.7 %; Mean Corpuscular HGB Conc 33.5 g/dL (30-55); Mean Corpuscular Hemoglobin 31.4 pg (27-33); Mean Corpuscular Volume 93.8 fl (82-101); Mean Platelet Volume 9.1 fL (7.4-10.4); Monocytes # 2.4 10^3/uL (0.2-0.9); Monocytes % 22.3 %; Neutrophils # 4.81 10^3/uL (1.8-7.7); Nucleated Red Blood Cells % 0 %; Platelet Count 235 10^3/cmm (157-399); Red Blood Count 4.49 10^6/uL (3.85-5.65); Red Cell Distribution Width 12.7 % (12.1-15.1); White Blood Count 10.92 10^3/uL (3.29-11.43)
[2025-02-01 14:59] LABS: INR 0.91 (0.8-1.2)
[2025-02-01 15:00] LABS: Partial Thromboplastin Time 26.8 SECONDS (23.9-36.7)
[2025-02-01 15:03] LABS: Alanine Aminotransferase 18 U/L (0-41); Albumin Level 3.6 g/dL (3.5-5.2); Alkaline Phosphatase 88 U/L (40-130); Anion Gap 16.1 (5-19); Aspartate Amino Transferase 16 U/L (0-40); Blood Urea Nitrogen 10 mg/dL (6-20); C Reactive Protein 31.7 mg/L (0.0-4.9); Calcium 8.5 mg/dL (8.5-10.5); Carbon Dioxide 21 mmol/L (22-29); Chloride 100 mmol/L (98-107); Creatinine Clr Calc Pharmacy 101.8946; Globulin 2.8 g/dL (1.3-4.6); Glomerular Filtration Rate 86.7 mL/min (90-130); Glucose 97 mg/dL (65-115); Lactic Sepsis W/Reflex 0.8 mmol/L (0.5-2.2); Osmolality Calculated 275 mOsm/kg (285-295); Potassium 4.1 mmol/L (3.5-5.1); Sodium 133 mmol/L (136-145); Total Bilirubin 0.6 mg/dL (0.15-1.2); Total Protein 6.4 g/dL (6.6-8.7)
[2025-02-01 15:32] VITALS: BP 142/87; PULSE 87; O2SAT 98
== END 2025-02-01 15:35 | disposition home or self-care (01) ==
PROVIDERS: Emergency Provider Emergency Medicine; PCP Nurse Practitioner Family
DX: I82.C11 Acute embolism and thrombosis of right internal jugular vein (principal); I10 Essential (primary) hypertension; J44.9 Chronic obstructive pulmonary disease, unspecified; Z87.891 Personal history of nicotine dependence
CPT/HCPCS: 36415; 80053; 83605; 85025; 85610; 85730; 86140; 87040; 99283

== ENCOUNTER 2025-02-10 11:00 | Oncology outpatient (recurring) (ONCR) | payer MEDICAID, SELFPAY ==
[2023-10-29 14:47] VITALS: BP 148/90; BMI 28.3
[2025-01-18 08:06] LABS: Basophils # 0.1 10^3/uL (0.0-0.1); Basophils % 0.9 %; Eosinophils # 0.4 10^3/uL (0.0-0.8); Eosinophils % 4.5 %; Hematocrit 42.3 % (37-53); Lymphocytes # 3.4 10^3/uL (0.8-4.8); Lymphocytes % 41.3 %; Mean Corpuscular HGB Conc 33.6 g/dL (30-55); Mean Corpuscular Hemoglobin 32.1 pg (27-33); Mean Corpuscular Volume 95.5 fl (82-101); Mean Platelet Volume 9.2 fL (7.4-10.4); Monocytes # 1.2 10^3/uL (0.2-0.9); Monocytes % 14.8 %; Neutrophils # 3.11 10^3/uL (1.8-7.7); Neutrophils % 38.1 %; Nucleated Red Blood Cells % 0 %; Platelet Count 233 10^3/cmm (157-399); Red Blood Count 4.43 10^6/uL (3.85-5.65); White Blood Count 8.16 10^3/uL (3.29-11.43)
[2025-01-18 08:29] LABS: Alanine Aminotransferase 18 U/L (0-41); Albumin Level 3.6 g/dL (3.5-5.2); Alkaline Phosphatase 81 U/L (40-130); Aspartate Amino Transferase 16 U/L (0-40); Blood Urea Nitrogen 11 mg/dL (6-20); Calcium 8.7 mg/dL (8.5-10.5); Carbon Dioxide 26 mmol/L (22-29); Chloride 102 mmol/L (98-107); Globulin 2.5 g/dL (1.3-4.6); Glomerular Filtration Rate 86.7 mL/min (90-130); Glucose 126 mg/dL (65-115); Osmolality Calculated 283 mOsm/kg (285-295); Sodium 136 mmol/L (136-145); Total Bilirubin 0.3 mg/dL (0.15-1.2); Total Protein 6.1 g/dL (6.6-8.7)
[2025-01-18] MEDS: dextrose 5% 250 ML 75 ML IV (09:20)
[2025-01-18] MEDS: palonosetron 0.25 mg/5 mL SDV IVP (09:22)
[2025-01-18] MEDS: dexamethasone 4 mg/mL INJ 5 mL 12 MG IVP (09:24)
[2025-01-18] MEDS: DEXTROSE 5% IV (10:21)
[2025-01-18] MEDS: OXALIPLATIN IV (10:21)
[2025-01-18] MEDS: leucovorin 840 MG in dextrose 5% 250 ML 62.5 MG IV (10:21)
[2025-01-18] MEDS: fluorouraciL 50 mg/ml MDV 100 mL 850 MG IVP (12:35)
[2025-01-18] MEDS: fluorouraciL 5,050 MG, elastomeric pump 1 PUMP in sodium chloride 0.9% (100 ml) 129 ML IV (12:43)
[2025-01-18 12:49] VITALS: BP 155/82; PULSE 66; TEMP 36.8; O2SAT 95
[2025-01-20 10:17] VITALS: BP 138/89; PULSE 69; RESP 16; TEMP 36.9; O2SAT 96
[2025-02-01 08:11] LABS: Basophils # 0.1 10^3/uL (0.0-0.1); Basophils % 0.7 %; Eosinophils # 0.2 10^3/uL (0.0-0.8); Eosinophils % 1.3 %; Hematocrit 41.1 % (37-53); Lymphocytes # 3.8 10^3/uL (0.8-4.8); Lymphocytes % 33.5 %; Mean Corpuscular HGB Conc 33.6 g/dL (30-55); Mean Corpuscular Hemoglobin 31.4 pg (27-33); Mean Corpuscular Volume 93.6 fl (82-101); Mean Platelet Volume 9.2 fL (7.4-10.4); Monocytes # 2.5 10^3/uL (0.2-0.9); Neutrophils % 41.8 %; Nucleated Red Blood Cells % 0 %; Platelet Count 232 10^3/cmm (157-399); Red Blood Count 4.39 10^6/uL (3.85-5.65); Red Cell Distribution Width 12.6 % (12.1-15.1); White Blood Count 11.24 10^3/uL (3.29-11.43)
[2025-02-01 08:34] LABS: Alanine Aminotransferase 16 U/L (0-41); Albumin Level 3.6 g/dL (3.5-5.2); Alkaline Phosphatase 86 U/L (40-130); Anion Gap 14.9 (5-19); Aspartate Amino Transferase 14 U/L (0-40); Blood Urea Nitrogen 9 mg/dL (6-20); Calcium 8.6 mg/dL (8.5-10.5); Carbon Dioxide 23 mmol/L (22-29); Chloride 101 mmol/L (98-107); Creatinine Clr Calc Pharmacy 101.8946; Globulin 2.8 g/dL (1.3-4.6); Glomerular Filtration Rate 86.7 mL/min (90-130); Glucose 93 mg/dL (65-115); Osmolality Calculated 278 mOsm/kg (285-295); Potassium 3.9 mmol/L (3.5-5.1); Sodium 135 mmol/L (136-145); Total Bilirubin 0.7 mg/dL (0.15-1.2); Total Protein 6.4 g/dL (6.6-8.7)
--- NOTE | 2025-02-01 09:47 | XRR_ITS ---
PROCEDURE INFORMATION: Exam: XR Abdomen Exam date and time: 02/01/2025 10:15 AM Age: 59 years old Clinical indication: Other: Rectal cancer; HX of prostate, rectal and colon cancer TECHNIQUE: Imaging protocol: Radiologic exam of the abdomen. Views: Frontal supine view of the abdomen. 1 View. COMPARISON: CR XR abdomen 1V* [id number] 11/14/2020 9:08 AM FINDINGS: Gastrointestinal tract: No abnormally dilated bowel loops or distinct pneumoperitoneum. Organs: No organomegaly, mass, or abnormal calcification. Bones/joints: No acute osseous or soft tissue abnormality. XR/XR abdomen 1V* [id number] IMPRESSION: No acute abnormality.
[2025-02-01 10:26] LABS: D Dimer 1.54 ug/mLFEU (0-0.59)
--- NOTE | 2025-02-01 10:45 | CT_ITS ---
WS: [id number] CTA OF THE CHEST WITH PULMONARY EMBOLISM PROTOCOL TECHNIQUE: High-resolution contrast enhanced CTA of the chest with coronal and sagittal reformatted images with pulmonary embolism protocol. MIP images are also reviewed. CLINICAL INFORMATION: neck edema and pain COMPARISON: None. DLP: 417.[address] scans at [facility] use at least one of these dose optimization techniques: automated exposure control; mA and/or kV adjustment per patient size (includes targeted exams where dose is matched to clinical indication); or iterative reconstruction. FINDINGS: Proximal main pulmonary arteries are normal. Normal segmental and subsegmental pulmonary arteries. No evidence of pulmonary embolus. Coronary calcification. Normal caliber thoracic aorta. Lungs are well aerated. No acute pulmonary infiltrates. Numerous normal size mediastinal lymph nodes similar to previous. No axillary lymphadenopathy. Adrenal glands are normal. Tiny esophageal hernia. Food products in the stomach. CT/CT angio chest PE protcl [id number] IMPRESSION: 1. No evidence of pulmonary embolus. 2. Lungs are well aerated
--- NOTE | 2025-02-01 10:45 | CT_ITS ---
WS: [id number] CTA NECK TECHNIQUE: Contrast enhanced CTA of the neck with coronal and sagittal reformatted images and maximum intensity projection (MIP) images. NASCET criteria utilized. CLINICAL INFORMATION: edema of the neck COMPARISON: None. DLP: 247.[address] scans at [facility] use at least one of these dose optimization techniques: automated exposure control; mA and/or kV adjustment per patient size (includes targeted exams where dose is matched to clinical indication); or iterative reconstruction. FINDINGS: Diffuse expansile thrombus within the RIGHT jugular vein extending from the thoracic inlet to the skull base at the sigmoid sinus. Moderate diffuse edema with fluid and induration in the RIGHT neck soft tissues extending into the parapharyngeal soft tissues. Small amount of retropharyngeal fluid. No evidence of drainable abscess or drainable fluid collection. RIGHT Port-A-Cath with tip in the SVC. Few reactive lymph nodes in the RIGHT neck. RIGHT: No significant RIGHT ICA stenosis. LEFT: Less than 50% LEFT ICA stenosis. Mild to moderate carotid bulb calcification. LEFT dominant vertebral artery. Smaller but patent RIGHT vertebral artery. Normal visualized thyroid. CT/CT angio neck [id number] IMPRESSION: 1. 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 2. Diffuse soft tissue edema and fluid in the RIGHT neck. Fluid and edema exte nds into the parapharyngeal soft tissues. Small amount of retropharyngeal fluid . No drainable abscess or fluid collection at this time. While this is presumab ly due to indwelling catheter thrombosis, recommend correlation for post pharyn gitis venous thrombosis. I.e. Lemierre's syndrome Notified Radha Carpenter APRN at 02/01/2025 12:23 PM.
[2025-02-01] MEDS: iohexol 350 mg/mL 500 mL Btl (per mL) IV ×2 (11:45)
[2025-02-08 09:58] LABS: Carcinoembryonic Antigen 2.2 ng/mL (0.0-4.7)
[2025-02-08 11:18] LABS: Basophils # 0.2 10^3/uL (0.0-0.1); Basophils % 1.2 %; Eosinophils # 0.3 10^3/uL (0.0-0.8); Eosinophils % 2.1 %; Hematocrit 41.1 % (37-53); Lymphocytes # 4.7 10^3/uL (0.8-4.8); Lymphocytes % 31.3 %; Mean Corpuscular HGB Conc 32.8 g/dL (30-55); Mean Corpuscular Hemoglobin 31.3 pg (27-33); Mean Corpuscular Volume 95.4 fl (82-101); Mean Platelet Volume 8.9 fL (7.4-10.4); Monocytes # 2.2 10^3/uL (0.2-0.9); Monocytes % 14.5 %; Neutrophils # 6.57 10^3/uL (1.8-7.7); Nucleated Red Blood Cells % 0 %; Platelet Count 442 10^3/cmm (157-399); Red Blood Count 4.31 10^6/uL (3.85-5.65); Red Cell Distribution Width 12.7 % (12.1-15.1); White Blood Count 14.91 10^3/uL (3.29-11.43)
[2025-02-08 11:40] LABS: Alanine Aminotransferase 12 U/L (0-41); Albumin Level 3.3 g/dL (3.5-5.2); Alkaline Phosphatase 91 U/L (40-130); Anion Gap 14.1 (5-19); Aspartate Amino Transferase 11 U/L (0-40); Blood Urea Nitrogen 7 mg/dL (6-20); Calcium 8.6 mg/dL (8.5-10.5); Carbon Dioxide 23 mmol/L (22-29); Chloride 105 mmol/L (98-107); Creatinine Clr Calc Pharmacy 114.6314; Globulin 3.1 g/dL (1.3-4.6); Glomerular Filtration Rate 99.3 mL/min (90-130); Glucose 101 mg/dL (65-115); Osmolality Calculated 284 mOsm/kg (285-295); Potassium 4.1 mmol/L (3.5-5.1); Sodium 138 mmol/L (136-145); Total Bilirubin 0.2 mg/dL (0.15-1.2); Total Protein 6.4 g/dL (6.6-8.7)
[2025-02-08 12:08] LABS: Slide Review Slide Review Perform
[2025-02-08] MEDS: dexamethasone 4 mg/mL INJ 5 mL 12 MG IVP (12:39)
[2025-02-08] MEDS: dextrose 5% 250 ML 75 ML IV (12:40)
[2025-02-08] MEDS: palonosetron 0.25 mg/5 mL SDV IVP (12:45)
[2025-02-08] MEDS: oxaliplatin 180 MG in dextrose 5% 250 ML 143 MG IV (13:08)
[2025-02-08] MEDS: leucovorin 840 MG in dextrose 5% 250 ML 140 MG IV (13:08)
[2025-02-08] MEDS: fluorouraciL 5,050 MG, elastomeric pump 1 PUMP in sodium chloride 0.9% (100 ml) 129 ML IV (15:39)
[2025-02-08] MEDS: fluorouraciL 50 mg/ml MDV 100 mL 850 MG IVP (15:39)
[2025-02-08 15:55] VITALS: BP 138/84; PULSE 73; RESP 18; TEMP 37; O2SAT 97
[2025-02-10 10:05] VITALS: BP 131/80; PULSE 77; RESP 17; TEMP 36.8; O2SAT 96
== END 2025-02-11 23:59 | disposition home or self-care (01) ==
PROVIDERS: Internal Medicine Medical Oncology; PCP Nurse Practitioner Family; Visit Provider Nurse Practitioner Family
DX: Z53.9 Procedure and treatment not carried out, unspecified reason; Z45.1 Encounter for adjustment and management of infusion pump
CPT/HCPCS: 36415; 36591; 70498; 71275; 74018; 80053; 82378; 85025; 85378; 96368; 96375; 96411; 96413; 96415; 96416; 96417; 96523; 99214; J0640; J1100; J2469; J7060; J9190; J9263

== ENCOUNTER 2025-03-13 09:00 | Oncology outpatient (recurring) (ONCR) | payer MEDICAID, SELFPAY ==
[2023-10-29 14:47] VITALS: BP 148/90; BMI 28.3
[2025-02-14 09:18] LABS: Basophils # 0.1 10^3/uL (0.0-0.1); Basophils % 0.7 %; Eosinophils # 0.2 10^3/uL (0.0-0.8); Eosinophils % 1.4 %; Hematocrit 42.5 % (37-53); Lymphocytes # 4.2 10^3/uL (0.8-4.8); Lymphocytes % 33.3 %; Mean Corpuscular HGB Conc 33.4 g/dL (30-55); Mean Corpuscular Hemoglobin 31.5 pg (27-33); Mean Corpuscular Volume 94.2 fl (82-101); Mean Platelet Volume 8.8 fL (7.4-10.4); Monocytes # 0.7 10^3/uL (0.2-0.9); Monocytes % 5.8 %; Neutrophils # 7.01 10^3/uL (1.8-7.7); Nucleated Red Blood Cells % 0.2 %; Platelet Count 283 10^3/cmm (157-399); Red Blood Count 4.51 10^6/uL (3.85-5.65); Red Cell Distribution Width 12.6 % (12.1-15.1); White Blood Count 12.51 10^3/uL (3.29-11.43)
[2025-02-14 09:34] LABS: Alanine Aminotransferase 22 U/L (0-41); Albumin Level 3.6 g/dL (3.5-5.2); Alkaline Phosphatase 95 U/L (40-130); Anion Gap 15.9 (5-19); Aspartate Amino Transferase 15 U/L (0-40); Blood Urea Nitrogen 11 mg/dL (6-20); Calcium 8.6 mg/dL (8.5-10.5); Carbon Dioxide 26 mmol/L (22-29); Chloride 100 mmol/L (98-107); Globulin 3.2 g/dL (1.3-4.6); Glomerular Filtration Rate 99.3 mL/min (90-130); Glucose 86 mg/dL (65-115); Osmolality Calculated 283 mOsm/kg (285-295); Potassium 4.9 mmol/L (3.5-5.1); Sodium 137 mmol/L (136-145); Total Bilirubin 0.3 mg/dL (0.15-1.2); Total Protein 6.8 g/dL (6.6-8.7)
[2025-02-21 08:05] LABS: Basophils # 0.1 10^3/uL (0.0-0.1); Basophils % 0.7 %; Eosinophils # 0.4 10^3/uL (0.0-0.8); Eosinophils % 3.9 %; Hematocrit 41.8 % (37-53); Lymphocytes # 3.8 10^3/uL (0.8-4.8); Mean Corpuscular HGB Conc 32.5 g/dL (30-55); Mean Corpuscular Hemoglobin 31.3 pg (27-33); Mean Corpuscular Volume 96.1 fl (82-101); Mean Platelet Volume 8.9 fL (7.4-10.4); Monocytes # 1.5 10^3/uL (0.2-0.9); Monocytes % 14.3 %; Neutrophils # 4.53 10^3/uL (1.8-7.7); Neutrophils % 43.7 %; Nucleated Red Blood Cells % 0 %; Platelet Count 217 10^3/cmm (157-399); Red Blood Count 4.35 10^6/uL (3.85-5.65); Red Cell Distribution Width 13.7 % (12.1-15.1); White Blood Count 10.35 10^3/uL (3.29-11.43)
[2025-02-21 08:20] LABS: Alanine Aminotransferase 21 U/L (0-41); Albumin Level 3.8 g/dL (3.5-5.2); Alkaline Phosphatase 86 U/L (40-130); Anion Gap 15.4 (5-19); Aspartate Amino Transferase 18 U/L (0-40); Blood Urea Nitrogen 11 mg/dL (6-20); Calcium 8.8 mg/dL (8.5-10.5); Carbon Dioxide 24 mmol/L (22-29); Chloride 102 mmol/L (98-107); Globulin 2.5 g/dL (1.3-4.6); Glomerular Filtration Rate 99.3 mL/min (90-130); Glucose 94 mg/dL (65-115); Osmolality Calculated 283 mOsm/kg (285-295); Potassium 4.4 mmol/L (3.5-5.1); Sodium 137 mmol/L (136-145); Total Bilirubin 0.2 mg/dL (0.15-1.2); Total Protein 6.3 g/dL (6.6-8.7)
[2025-02-21] MEDS: dextrose 5% 250 ML 75 ML IV (09:27)
[2025-02-21] MEDS: palonosetron 0.25 mg/5 mL SDV IVP (09:27)
[2025-02-21] MEDS: dexamethasone 4 mg/mL INJ 5 mL 12 MG IVP (09:28)
[2025-02-21] MEDS: oxaliplatin 182 MG in dextrose 5% 250 ML 143.2 MG IV (10:08)
[2025-02-21] MEDS: leucovorin 850 MG in dextrose 5% 250 ML 62.5 MG IV (10:09)
[2025-02-21] MEDS: fluorouraciL 50 mg/ml MDV 100 mL 850 MG IVP (11:23)
[2025-02-21] MEDS: fluorouraciL 5,100 MG, elastomeric pump 1 PUMP in sodium chloride 0.9% (100 ml) 128 ML IV (11:24)
[2025-02-21 11:36] VITALS: BP 166/93; PULSE 66; RESP 18; TEMP 36.7; O2SAT 97
--- NOTE | 2025-02-24 08:30 | USCV_ITS ---
Taz Schafer Age: 59 Gender: M : 1965 Exam Date: 02/24/2025 08:50 Ordering Phys: [place] Technologist: Xiang Segura [place] [facility] [place]: chest pain BP: 166 / 93 HR: 66 Rhythm: Sinus Technical Quality: Adequate MEASUREMENTS (Male / Female) Normal Values 2D ECHO LV Diastolic Diameter PLAX 4.2 cm 4.2 - 5.9 / 3.9 - 5.3 cm IVS Diastolic Thickness 1.5 cm 0.6 - 1.0 / 0.6 - 0.9 cm IVS Systolic Thickness 1.7 cm LVPW Diastolic Thickness 2.1 cm 0.6 - 1.0 / 0.6 - 0.9 cm LVPW Systolic Thickness 2.1 cm LVOT Diameter 2.0 cm LV Ejection Fraction 2D Teich 58.4 % LV Ejection Fraction MOD 4C 69.8 % LV Ejection Fraction MOD 2C 68.4 % LV Ejection Fraction 2C AL 68.4 % LA Diameter 3.4 cm RA Systolic Volume 4C AL 19.1 ml RA Systolic Volume 4C MOD 19.3 ml LA Sys Volume AL 29.2 cm cubed LA Sys Volume Index AL 13.2 cm cubed/m squared Aorta at Sinotubular Diameter 2.1 cm IVC Diameter 1.5 cm M-MODE LA Ao Ratio MM 1.0 AV Cusp Separation MM 2.3 cm DOPPLER AV Peak Velocity 130.0 cm/s LVOT Peak Velocity 92.0 cm/s AV Area Cont Eq vti 2.2 cm squared AV Area Cont Eq pk 2.2 cm squared MV Peak Velocity 110.0 cm/s MV Area PHT 5.0 cm squared Mitral E to A Ratio 0.9 TR Peak Velocity 228.0 cm/s TR Peak Gradient 20.8 mmHg TR Mean Velocity 162.0 cm/s TR Mean Gradient 11.7 mmHg TR Velocity Time Integral 53.6 cm PV Peak Velocity 132.0 cm/s RV Ejection Time 0.3 s FINDINGS Left Ventricle Normal left ventricular size and systolic function, EF 68%. Mild left ventricular hypertrophy.no regional wall motion abnormalities. . Right Ventricle The right ventricle is normal in size and function. Right Atrium The right atrium is normal in size. Left Atrium The left atrium is normal in size. Mitral Valve Trace to mild mitral valve regurgitation. Aortic Valve No gross abnormalities noted Tricuspid Valve No gross abnormalities noted Pulmonic Valve Trace pulmonary valve regurgitation. Pericardium No pericardial effusion. Aorta Normal aortic annulus size. IVC Normal inferior vena cava. CONCLUSIONS Normal left ventricular size and systolic function, EF 68%. Mild left ventricular hypertrophy.no regional wall motion abnormalities. Normal cardiac chamber sizes Trace to mild mitral valve regurgitation. There is no pericardial effusion. There are no intracardiac masses. No similar previous studies are available for comparison Dr Alexis Hoskins MD FACC (Electronically Signed) Final Date: 24 February 2025 20:57 S
[2025-03-07 08:37] LABS: Basophils # 0.1 10^3/uL (0.0-0.1); Basophils % 1.2 %; Eosinophils # 0.2 10^3/uL (0.0-0.8); Eosinophils % 2.2 %; Hematocrit 43.1 % (37-53); Lymphocytes # 3.6 10^3/uL (0.8-4.8); Lymphocytes % 46.6 %; Mean Corpuscular HGB Conc 33.2 g/dL (30-55); Mean Corpuscular Hemoglobin 31.6 pg (27-33); Mean Corpuscular Volume 95.4 fl (82-101); Mean Platelet Volume 9.1 fL (7.4-10.4); Monocytes # 1.2 10^3/uL (0.2-0.9); Monocytes % 15.8 %; Neutrophils # 2.57 10^3/uL (1.8-7.7); Neutrophils % 33.2 %; Nucleated Red Blood Cells % 0 %; Platelet Count 222 10^3/cmm (157-399); Red Blood Count 4.52 10^6/uL (3.85-5.65); Red Cell Distribution Width 15.2 % (12.1-15.1); White Blood Count 7.74 10^3/uL (3.29-11.43)
[2025-03-07 09:14] LABS: Carcinoembryonic Antigen 2.7 ng/mL (0.0-4.7)
[2025-03-07 09:26] LABS: Alanine Aminotransferase 20 U/L (0-41); Albumin Level 3.7 g/dL (3.5-5.2); Alkaline Phosphatase 96 U/L (40-130); Anion Gap 15.9 (5-19); Aspartate Amino Transferase 18 U/L (0-40); Blood Urea Nitrogen 15 mg/dL (6-20); Carbon Dioxide 23 mmol/L (22-29); Chloride 102 mmol/L (98-107); Globulin 2.8 g/dL (1.3-4.6); Glomerular Filtration Rate 86.7 mL/min (90-130); Glucose 152 mg/dL (65-115); Osmolality Calculated 288 mOsm/kg (285-295); Potassium 3.9 mmol/L (3.5-5.1); Sodium 137 mmol/L (136-145); Total Bilirubin 0.3 mg/dL (0.15-1.2); Total Protein 6.5 g/dL (6.6-8.7)
[2025-03-07] MEDS: dexamethasone 4 mg/mL INJ 5 mL 12 MG IVP (10:20)
[2025-03-07] MEDS: dextrose 5% 250 ML 25 ML IV (10:20)
[2025-03-07] MEDS: palonosetron 0.25 mg/5 mL SDV IVP (10:26)
[2025-03-07] MEDS: leucovorin 860 MG in dextrose 5% 250 ML 62.5 MG IV (11:06)
[2025-03-07] MEDS: oxaliplatin 182 MG in dextrose 5% 250 ML 143.2 MG IV (11:07)
[2025-03-07] MEDS: fluorouraciL 50 mg/ml MDV 100 mL 850 MG IVP (13:22)
[2025-03-07] MEDS: fluorouraciL 5,150 MG, elastomeric pump 1 PUMP in sodium chloride 0.9% (100 ml) 127 ML IV (13:22)
[2025-03-07 13:38] VITALS: BP 152/90; PULSE 75; TEMP 36.9; O2SAT 97
[2025-03-07 13:56] LABS: Bilirubin Urine Negative (Negative); Blood Urine Negative (Negative); Glucose Urine UA Negative (Normal); Ketones Urine Negative (Negative); Leukocyte Esterase Urine 2+ (Negative); Nitrate Urine Negative (Negative); Protein Urine Negative (Negative); Urine Appearance Cloudy (CLEAR); Urine Color Dark Yellow (Yellow)
[2025-03-07 13:58] LABS: Add Urine Microscopic? YES; Bacteria Urine None Seen /hpf; Hyaline Casts Urine 0-4 /lpf; RBC Urine 0-2 /hpf (0-2); Squamous Epithelial Cell Urine 0-5 /hpf (0-5); WBC Urine 51-100 /hpf (0-5)
[2025-03-07 14:12] LABS: Add Urine Culture? Yes; UA Slide Review UA Slide Review Perf
== END 2025-03-13 23:59 | disposition home or self-care (01) ==
LOC: RAD 03-14
PROVIDERS: Internal Medicine; Internal Medicine Medical Oncology; Nurse Practitioner Family; PCP Nurse Practitioner Family; Visit Provider Nurse Practitioner Family
DX: Z53.9 Procedure and treatment not carried out, unspecified reason
CPT/HCPCS: 36591; 80053; 81001; 82378; 85025; 87086; 93306; 96375; 96411; 96413; 96415; 96416; 96417; 96523; 99214; J0640; J1100; J2469; J7060; J9190; J9263

== ENCOUNTER 2025-04-13 08:30 | Oncology outpatient (recurring) (ONCR) | payer MEDICAID, SELFPAY ==
[2023-10-29 14:47] VITALS: BP 148/90; BMI 28.3
[2025-03-21 08:13] LABS: Hematocrit 42.4 % (37-53); Hemoglobin 14.20 g/dL (11.27-16.99); Mean Corpuscular HGB Conc 33.5 g/dL (30-55); Mean Corpuscular Hemoglobin 32.2 pg (27-33); Mean Corpuscular Volume 96.1 fl (82-101); Nucleated Red Blood Cells % 0 %; Platelet Count 192 10^3/cmm (157-399); Red Blood Count 4.41 10^6/uL (3.85-5.65); White Blood Count 8.06 10^3/uL (3.29-11.43)
[2025-03-21 08:28] LABS: Alanine Aminotransferase 30 U/L (0-41); Albumin Level 3.7 g/dL (3.5-5.2); Alkaline Phosphatase 104 U/L (40-130); Anion Gap 15.2 (5-19); Aspartate Amino Transferase 23 U/L (0-40); Blood Urea Nitrogen 9 mg/dL (6-20); Calcium 9.3 mg/dL (8.5-10.5); Carbon Dioxide 22 mmol/L (22-29); Chloride 106 mmol/L (98-107); Creatinine Clr Calc Pharmacy 103.9613; Globulin 2.9 g/dL (1.3-4.6); Glucose 103 mg/dL (65-115); Osmolality Calculated 287 mOsm/kg (285-295); Potassium 4.2 mmol/L (3.5-5.1); Sodium 139 mmol/L (136-145); Total Protein 6.6 g/dL (6.6-8.7)
[2025-03-21] MEDS: dexamethasone 4 mg/mL INJ 5 mL 12 MG IVP (10:19)
[2025-03-21] MEDS: leucovorin 860 MG in dextrose 5% 250 ML 62.5 MG IV (11:48)
[2025-03-21] MEDS: oxaliplatin 182 MG in dextrose 5% 250 ML 143.2 MG IV (11:48)
[2025-03-21] MEDS: fluorouraciL 50 mg/ml MDV 100 mL 850 MG IVP (14:09)
[2025-03-21] MEDS: fluorouraciL 5,150 MG, elastomeric pump 1 PUMP in sodium chloride 0.9% (100 ml) 127 ML IV (14:21)
[2025-03-21 14:35] VITALS: BP 159/92; PULSE 70; RESP 17; TEMP 36.9; O2SAT 96
--- NOTE | 2025-03-23 16:31 | N.ONRAD NP_ITS ---
Radiation Oncology New Patient Visit Patient: Taz Schafer MR#: [id number] : 1965 Age: 59 Sex: Male Dictated by: Dr. Taye Patterson Date of Service: 03/23/2025 Referring Physician(s) : Dr. Javed Diagnosis: St IIIB (T3 , N2B, M0) adenocarcinoma of the inferior rectum biopsied 10/13/2024. Now s/p 6 cycles of FOLFOX chemotherapy. Here to address preoperative neoadjuvant pelvic radiation with 5FU. Radiotherapy to date: Summary > No prior radiation therapy. Chief Complaint / History of Present Illness: He had lower quadrant abdominal pain and rectal bleeding seen on toilet paper for some time. Colonoscopy 10/13/2024: Palpable mass noted. Ulcerated friable rectal mass. Bx moderately differentiated adenocarcinoma. MMR proficient. MRI pelvis 11/28/2024 Mass 5 cm from anal verge. MR-T T3 Number of suspicious mesorectal nodes 6. Now completed 6 cycles of FOLFOX chemo. Abdominal pain better. Some persistent bleeding with wiping . Eating ok. [place] some weight from 206 to 223 pounds. Current Medications: albuterol sulfate 90 mcg/actuation 2 puffs inhalation Q6H apixaban (Eliquis) mg PO cephalexin 500 mg PO BID 7 days epinephrine (EpiPen 2-Momo) 0.3 mg (0.3 mL) IM Q10M PRN famotidine (Pepcid) 40 mg PO DAILY hydrocodone-acetaminophen 5-325 mg 1 tab PO Q4H PRN 5 days lorazepam 0.5 - 1 mg (0.5 - 1 x 1 mg) PO Q6H PRN omeprazole Take 1 capsule by mouth once daily ondansetron HCl 4 mg PO Q6H PRN polyethylene glycol 3350 (Miralax) 17 grams PO DAILY polyethylene glycol 3350 (Miralax) 17 grams PO DAILY prochlorperazine maleate (Compazine) 10 mg PO Q4H PRN tamsulosin (Flomax) 0.4 mg PO DAILY Allergies: insect venom Allergy (Intermediate, Verified 03/21/25 08:11) swelling Medical History: No history of collagen vascular disease. No previous radiation therapy. Neuropathic pain Feet COPD (chronic obstructive pulmonary disease) Gastro-esophageal reflux disease without esophagitis Mixed hyperlipidemia BPH (benign prostatic hyperplasia) Hepatitis C virus infection cured after antiviral drug therapy Hypertension Surgical History: History of cataract extraction Both eyes Family History: Mother , from MRSA Grandmother , cancer Cancer -unknown type Grandfather , Emphysema Lung disease Emphysema Other CAD (coronary artery disease) Hypertension Stroke Denies family history of Diabetes Social History: Single never . Lives alone. Disabled. 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 17 year old daughter. No contact with her. Supportive jain group. He reverend is with him now. Smoking and tobacco/nicotine status: former use of tobacco/nicotine Second hand smoke exposure: No Alcohol intake: former Year of sobriety/quit date alcohol: 1986 Substance/Drug Use: former Date of last use: 1990 Adopted: No Caregiver/support person: No Lives independently: No Household members: none Housing: House Marital status: Single Number of children: 1 Number of grandchildren: 0 Highest education level completed: Associate Degree: Occupational, Technical, Vocational Program Education level details: Certification in Tagg[employer] technology service: No Current occupational status: disabled Current occupational exposures/hazards: No Pets and animals: Yes Pets & animals: cat(s) and dog(s) Leisure activites: exercise Sexually active: No Do you think of yourself as: Straight/Heterosexual Current gender identity: Male Leyla/Denominational: Presybeterian Special leyla needs: No Agree to transfusion: Yes Current Complaints / Review of Systems: . Vital Signs: Performed on 03/23/2025 12:03 PM BMI - 32.932 kg/m2 (high), Height - 69 in, Weight - 223 lbs, Temperature - 97.9 f, Pulse - 67 /min, Respiration - 17 /min, O2 Sat - 97 %, Pain - 0, Fatigue - 0 and BP - 130/ 80 mm(hg). Physical Exam: Pleasant simple man. Very poor dentition. No maxillary teeth. Several poor teeth in mandible. No adenopathy. No pedal edema. Rectal exam declined. Performance Status: ECOG PS 0 ??? 1. Pathology: See above. Imaging: See HPI Impression:St IIIB (T3, N2B, M0) adenocarcinoma of low rectum< He has done well with 6 cycles of FOLFOX. Will now proceed with 50 Gy of tailored IMRT to primary and reagional LNs in 25 treatments with concurrent 5FU. Proceed with simulation today with treatment to start next week. Signed by: 03/23/2025 4:30:17 PM <<Signature on File>> Time spent with patient: CPT Code: CPT Code:
[2025-03-28] MEDS: iohexol 350 mg/mL 500 mL Btl (per mL) PO (12:32)
[2025-03-28] MEDS: iohexol 350 mg/mL 500 mL Btl (per mL) IV (12:41)
--- NOTE | 2025-03-28 12:45 | CT_ITS ---
WS: [id number] CT CHEST, ABDOMEN AND PELVIS WITH CONTRAST HISTORY: rectal cancer TECHNIQUE: Contiguous 5 mm axial imaging performed through the chest, abdomen and pelvis with IV contrast, oral contrast has been provided. Coronal and sagittal reformats chest. Coronal and sagittal reformats through the abdomen and pelvis. All CT scans at [facility] use at least one of these dose optimization techniques: automated exposure control; mA and/or kV adjustment per patient size (includes targeted exams where dose is matched to clinical indication); or iterative reconstruction. CONTRAST: Omnipaque 350; 100 mL IV. DLP: 1260.34 mGy.cm COMPARISON: 02/01/2025, 11/04/[address]: Lungs are clear. No metastatic nodules or pneumonia. Mild atherosclerosis aorta. Normal size pulmonary artery. Heart is normal size. No pericardial pleural effusions. No mediastinal or hilar adenopathy. RIGHT subclavian Port-A-Cath. Abdomen CT: Normal liver. No metastatic disease. No intrahepatic duct dilatation. Negative gallbladder and spleen. Normal portal vein and pancreas. No adrenal mass. No renal obstruction or mass. Mild atherosclerosis aorta. There is small lymph nodes near the celiac axis with the largest measuring 9 mm. These lymph nodes were also present on the prior CT. Stomach is well distended with food products and oral contrast. No small bowel obstruction. Normal appendix. Reidentified is circumferential rectal wall thickening which has improved since 11/04/2024. Persistent rectal wall thickening measuring up to 10 mm on the LEFT. Lumen is narrowed to the rectum. Lymph node adjacent to the RIGHT lateral wall of the rectum reidentified measuring 7 mm. No progression. Pelvic CT: No free fluid. Patent bilateral inguinal canals containing fat only. Small round lymph nodes in the inguinal regions with the largest on the RIGHT measuring 11 mm. No progression since the prior exam. Mild anterior wedging of L1. No destructive bone lesions. CT/CT chest abdpel w/*[id number] IMPRESSION: 1. Persistent but improved circumferential rectal wall thickening measuring up to 10 mm on the LEFT. 2. Minimal decrease in size of the RIGHT perirectal lymph node now measuring 7 mm. 3. No metastatic disease to the adrenal glands or liver. 4. No metastatic nodules in the lungs. 5. Indeterminate but stable round lymph nodes in the inguinal regions bilatera lly and at the celiac axis. No change since 11/04/2024. Largest in the RIGHT ing uinal region measures 11 mm. 6. Chronic anterior wedging of L1.
[2025-04-04 14:01] LABS: Hematocrit 43.0 % (37-53); Hemoglobin 14.20 g/dL (11.27-16.99); Mean Corpuscular HGB Conc 33.0 g/dL (30-55); Mean Corpuscular Hemoglobin 31.3 pg (27-33); Mean Corpuscular Volume 94.9 fl (82-101); Nucleated Red Blood Cells % 0 %; Platelet Count 161 10^3/cmm (157-399); Red Blood Count 4.53 10^6/uL (3.85-5.65); White Blood Count 7.45 10^3/uL (3.29-11.43)
[2025-04-04 15:30] LABS: Carcinoembryonic Antigen 3.0 ng/mL (0.0-4.7)
[2025-04-04 15:41] LABS: Alanine Aminotransferase 23 U/L (0-41); Albumin Level 3.9 g/dL (3.5-5.2); Alkaline Phosphatase 97 U/L (40-130); Anion Gap 17.7 (5-19); Aspartate Amino Transferase 22 U/L (0-40); Blood Urea Nitrogen 10 mg/dL (6-20); Calcium 9.0 mg/dL (8.5-10.5); Carbon Dioxide 22 mmol/L (22-29); Chloride 102 mmol/L (98-107); Creatinine Clr Calc Pharmacy 103.7315; Globulin 2.9 g/dL (1.3-4.6); Glucose 124 mg/dL (65-115); Osmolality Calculated 286 mOsm/kg (285-295); Potassium 3.7 mmol/L (3.5-5.1); Sodium 138 mmol/L (136-145); Total Protein 6.8 g/dL (6.6-8.7)
[2025-04-13 08:43] LABS: Hematocrit 45.2 % (37-53); Hemoglobin 15.10 g/dL (11.27-16.99); Mean Corpuscular HGB Conc 33.4 g/dL (30-55); Mean Corpuscular Hemoglobin 31.7 pg (27-33); Mean Corpuscular Volume 95.0 fl (82-101); Nucleated Red Blood Cells % 0 %; Platelet Count 258 10^3/cmm (157-399); Red Blood Count 4.76 10^6/uL (3.85-5.65); White Blood Count 11.73 10^3/uL (3.29-11.43)
[2025-04-13 09:09] LABS: Carcinoembryonic Antigen 2.7 ng/mL (0.0-4.7)
[2025-04-13 09:20] LABS: Alanine Aminotransferase 17 U/L (0-41); Albumin Level 4.0 g/dL (3.5-5.2); Alkaline Phosphatase 101 U/L (40-130); Anion Gap 17.5 (5-19); Aspartate Amino Transferase 19 U/L (0-40); Blood Urea Nitrogen 9 mg/dL (6-20); Calcium 9.2 mg/dL (8.5-10.5); Carbon Dioxide 23 mmol/L (22-29); Chloride 101 mmol/L (98-107); Creatinine Clr Calc Pharmacy 93.9784; Globulin 3.0 g/dL (1.3-4.6); Glucose 93 mg/dL (65-115); Osmolality Calculated 282 mOsm/kg (285-295); Potassium 4.5 mmol/L (3.5-5.1); Sodium 137 mmol/L (136-145); Total Protein 7.0 g/dL (6.6-8.7)
== END 2025-04-13 23:59 | disposition home or self-care (01) ==
PROVIDERS: Nurse Practitioner Family; PCP Nurse Practitioner Family; Visit Provider Internal Medicine Medical Oncology
DX: Z53.9 Procedure and treatment not carried out, unspecified reason; Z51.0 Encounter for antineoplastic radiation therapy; C20 Malignant neoplasm of rectum; Z87.891 Personal history of nicotine dependence; Z79.01 Long term (current) use of anticoagulants; I82.C19 Acute embolism and thrombosis of unspecified internal jugular vein; I10 Essential (primary) hypertension; Z79.899 Other long term (current) drug therapy
CPT/HCPCS: 36591; 71260; 74177; 77300; 77301; 77334; 77338; 77386; 77470; 80053; 82378; 85025; 96368; 96375; 96401; 96409; 96413; 96415; 96416; 96523; 99205; 99214; 99215; J0640; J1100; J2469; J7060; J9190; J9263

== ENCOUNTER 2025-05-05 08:51 | Oncology outpatient (recurring) (ONCR) | payer MEDICAID, SELFPAY ==
[2023-10-29 14:47] VITALS: BP 148/90; BMI 28.3
--- NOTE | 2025-04-18 13:40 | ONCRAD TMN_ITS ---
Radiation Oncology Weekly Treatment Management Patient: Taz Schafer MR#: [id number] : 1965 Attending Physician: Dr. Taye Patterson Date of Service: 04/18/2025 Referring Physician(s) : Diagnosis: C20 - Malignant neoplasm of rectum, Diagnosed 03/23/2025 (Active) Radiotherapy to date: Course: Rectum 2024, Treatment Site: Pelvis-rectum, Ref. ID: [id number], Energy: 15X, Dose/Fx (cGy): 200, #Fx: , Dose Correction (cGy): 0, Total Dose Delivered (cGy): 800, Start Date: 04/13/2025, Elapsed Days: 5 Reason for visit: The patient is being seen today as part of their regularly scheduled weekly on treatment visits to assess for acute toxicities from radiotherapy. Review of Systems: Doing well. No complaints. No N or v. Eating ok and gaining some weight. Wiping some blood after a BM. No diarrhea. Likes to be out of doors. Staying at the [facility] due prior drug use ( methamphetamines) which is court ordered. He graduates from this in 05/2025. Vital Signs: Performed on 04/18/2025 1:00 PM BMI - 32.872 kg/m2 (high), Height - 69 in, Weight - 222.6 lbs, Temperature - 97.7 f, Pulse - 82 /min, Respiration - 17 /min, O2 Sat - 98 %, Pain - 0, Fatigue - 0 and BP - 146/ 78 mm(hg)(high/). Physical Exam: omitted Imaging: Radiation therapy imaging related to accurate target localization (i.e. KV, MV and CBCT) was reviewed. Appropriate changes, if any, were made to ensure treatment accuracy. Plan: good tolerance of treatment . Will continue as planned. Signed by: Dr. Taye Patterson 04/18/2025 1:38:00 PM
[2025-04-20 09:49] LABS: Hematocrit 39.9 % (37-53); Hemoglobin 13.40 g/dL (11.27-16.99); Mean Corpuscular HGB Conc 33.6 g/dL (30-55); Mean Corpuscular Hemoglobin 31.9 pg (27-33); Mean Corpuscular Volume 95.0 fl (82-101); Nucleated Red Blood Cells % 0 %; Platelet Count 219 10^3/cmm (157-399); Red Blood Count 4.20 10^6/uL (3.85-5.65); White Blood Count 7.98 10^3/uL (3.29-11.43)
[2025-04-20 10:01] LABS: Alanine Aminotransferase 19 U/L (0-41); Albumin Level 3.7 g/dL (3.5-5.2); Alkaline Phosphatase 81 U/L (40-130); Anion Gap 12.3 (5-19); Aspartate Amino Transferase 21 U/L (0-40); Blood Urea Nitrogen 16 mg/dL (6-20); Calcium 8.7 mg/dL (8.5-10.5); Carbon Dioxide 25 mmol/L (22-29); Chloride 103 mmol/L (98-107); Globulin 2.6 g/dL (1.3-4.6); Glucose 118 mg/dL (65-115); Osmolality Calculated 284 mOsm/kg (285-295); Potassium 4.3 mmol/L (3.5-5.1); Sodium 136 mmol/L (136-145); Total Protein 6.3 g/dL (6.6-8.7)
--- NOTE | 2025-04-25 14:35 | ONCRAD TMN_ITS ---
Radiation Oncology Weekly Treatment Management Patient: Hanh Carcamo MR#: [id number] : 1965> Attending Physician: Ronn Alas Date of Service: 04/25/2025 Referring Physician(s) : Diagnosis: C20 - Malignant neoplasm of rectum, Diagnosed 03/23/2025 (Active) Radiotherapy to date: Course: Rectum 2024, Treatment Site: Pelvis-rectum, Ref. ID: [id number], Energy: 15X, Dose/Fx (cGy): 200, #Fx: , Dose Correction (cGy): 0, Total Dose Delivered (cGy): 1,800, Start Date: 04/13/2025, Elapsed Days: 12 Reason for visit: The patient is being seen today as part of their regularly scheduled weekly on treatment visits to assess for acute toxicities from radiotherapy. Review of Systems: Has issues with filling his bladder. He also states he needs more chemo pills. Vital Signs: Performed on 04/25/2025 12:28 PM BMI - 32.754 kg/m2 (high), Height - 69 in, Weight - 221.8 lbs, Temperature - 98.3 f, Pulse - 87 /min, Respiration - 18 /min, O2 Sat - 98 %, Pain - 5, Fatigue - 7 and BP - 147/ 90 mm(hg)(high/). Physical Exam: AAOx3. Skin itact Imaging: Radiation therapy imaging related to accurate target localization (i.e. KV, MV and CBCT) was reviewed. Appropriate changes, if any, were made to ensure treatment accuracy. Plan: Continue XRT. Continue Xeloda with treatment. signed by: Ronn Alas 04/25/2025 2:33:42 PM
[2025-05-02 11:05] LABS: Hematocrit 39.6 % (37-53); Hemoglobin 13.60 g/dL (11.27-16.99); Mean Corpuscular HGB Conc 34.3 g/dL (30-55); Mean Corpuscular Hemoglobin 33.1 pg (27-33); Mean Corpuscular Volume 96.4 fl (82-101); Nucleated Red Blood Cells % 0 %; Platelet Count 195 10^3/cmm (157-399); Red Blood Count 4.11 10^6/uL (3.85-5.65); White Blood Count 7.36 10^3/uL (3.29-11.43)
[2025-05-02 11:19] LABS: Alanine Aminotransferase 18 U/L (0-41); Albumin Level 4.1 g/dL (3.5-5.2); Alkaline Phosphatase 87 U/L (40-130); Anion Gap 15.3 (5-19); Aspartate Amino Transferase 22 U/L (0-40); Blood Urea Nitrogen 11 mg/dL (6-20); Calcium 8.9 mg/dL (8.5-10.5); Carbon Dioxide 23 mmol/L (22-29); Chloride 104 mmol/L (98-107); Creatinine Clr Calc Pharmacy 117.2144; Globulin 2.6 g/dL (1.3-4.6); Glucose 94 mg/dL (65-115); Osmolality Calculated 285 mOsm/kg (285-295); Potassium 4.3 mmol/L (3.5-5.1); Sodium 138 mmol/L (136-145); Total Protein 6.7 g/dL (6.6-8.7)
--- NOTE | 2025-05-02 11:32 | ONCRAD TMN_ITS ---
Radiation Oncology Weekly Treatment Management Patient: Taz Schafer MR#: [id number] : 1965 Attending Physician: Ronn Alas Date of Service: 05/02/2025 Referring Physician(s) : Diagnosis: C20 - Malignant neoplasm of rectum, Diagnosed 03/23/2025 (Active) Radiotherapy to date: Course: Rectum 2024, Treatment Site: Pelvis-rectum, Ref. ID: PTV, Energy: 15X, Dose/Fx (cGy): 200, #Fx: , Dose Correction (cGy): 0, Total Dose Delivered (cGy): 2,600, Start Date: 04/13/2025, End Date: 05/01/2025, Elapsed Days: 18 Reason for visit: The patient is being seen today as part of their regularly scheduled weekly on treatment visits to assess for acute toxicities from radiotherapy. Review of Systems: Labs adequate for treatment. Patient voices no complaints other than fatigue. Vital Signs: Performed on 05/02/2025 11:04 AM BMI - 32.489 kg/m2 (high), Height - 69 in, Weight - 220 lbs, Temperature - 98.7 f, Pulse - 70 /min, Respiration - 17 /min, O2 Sat - 98 %, Pain - 0, Fatigue - 0 and BP - 138/ 84 mm(hg). Physical Exam: AAOx3. Skin intact. Imaging: Radiation therapy imaging related to accurate target localization (i.e. KV, MV and CBCT) was reviewed. Appropriate changes, if any, were made to ensure treatment accuracy. Plan: Continue XRT Continue chemotherapy as directed Signed by: Ronn Alas 05/02/2025 11:30:21 AM
== END 2025-05-05 23:59 | disposition home or self-care (01) ==
PROVIDERS: Internal Medicine Medical Oncology; Nurse Practitioner Family; PCP Nurse Practitioner Family; Visit Provider Radiology Radiation Oncology
DX: Z51.0 Encounter for antineoplastic radiation therapy (principal); C20 Malignant neoplasm of rectum
CPT/HCPCS: 36591; 77336; 77386; 80053; 85025; 99024; 99213; 99214

== ENCOUNTER 2025-05-12 08:54 | Oncology outpatient (recurring) (ONCR) | payer MEDICAID, SELFPAY ==
[2023-10-29 14:47] VITALS: BP 148/90; BMI 28.3
--- NOTE | 2025-05-09 13:44 | ONCRAD TMN_ITS ---
Radiation Oncology Weekly Treatment Management Patient: Taz Schafer MR#: [id number] : 1965 Attending Physician: Ronn Alas Date of Service: 05/09/2025 Referring Physician(s) : Dr. Javed Diagnosis: C20 - Malignant neoplasm of rectum, Diagnosed 03/23/2025 (Active) Radiotherapy to date: Course: Rectum 2024, Treatment Site: Pelvis-rectum, Ref. ID: PTV, Energy: 15X, Dose/Fx (cGy): 200, #Fx: , Dose Correction (cGy): 0, Total Dose Delivered (cGy): 3,800, Start Date: 04/13/2025, Elapsed Days: 26 Reason for visit: The patient is being seen today as part of their regularly scheduled weekly on treatment visits to assess for acute toxicities from radiotherapy. Review of Systems: This is a pleasant 68-koiu-vrc-year-old male with rectal carcinoma. He is undergoing combined chemoradiation for his tumor. Patient acutely noted pain starting last night. No nausea or vomiting associated with that he has been using MiraLAX for stool softener for weeks. Patient has noticed some bleeding in his stool which is mostly diarrhea. There may be concern for some partial bowel obstruction. He also complains of skin irritation due to the diarrhea. Vital Signs: Performed on 05/09/2025 1:26 PM BMI - 32.784 kg/m2 (high), Height - 69 in, Weight - 222 lbs, Temperature - 97.9 f, Pulse - 91 /min, Respiration - 18 /min, O2 Sat - 99 %, Pain - 8, Fatigue - 0 and BP - 136/ 92 mm(hg)(/high). Physical Exam: AAOx3. Skin intact other than some erythema around the rectal vault. Abdomen is soft with tenderness in the upper and lower quadrants. No rebound appreciated Imaging: Radiation therapy imaging related to accurate target localization (i.e. KV, MV and CBCT) was reviewed. Appropriate changes, if any, were made to ensure treatment accuracy. Plan: KUB x-ray today Obtain a labs today Utilize Domeboro's for skin irritation Further recommendations following x-ray report if need be Signed by: Ronn Alas 05/09/2025 1:42:19 PM
[2025-05-09 13:52] LABS: Hematocrit 38.5 % (37-53); Hemoglobin 13.40 g/dL (11.27-16.99); Mean Corpuscular HGB Conc 34.8 g/dL (30-55); Mean Corpuscular Hemoglobin 33.3 pg (27-33); Mean Corpuscular Volume 95.5 fl (82-101); Nucleated Red Blood Cells % 0 %; Platelet Count 189 10^3/cmm (157-399); Red Blood Count 4.03 10^6/uL (3.85-5.65); White Blood Count 7.31 10^3/uL (3.29-11.43)
--- NOTE | 2025-05-09 14:03 | XR_ITS ---
WS: [id number] Exam: XR [id number] Date/Time of Exam: 05/09/2025 2:06 PM Reason For Exam: C20 - Malignant neoplasm of rectum No bowel obstruction or free air. No sign of organ enlargement. Regional bony structures are intact. XR/XR [id number] [id number] IMPRESSION: 1. No acute abdominal process.
[2025-05-09 14:14] LABS: Alanine Aminotransferase 18 U/L (0-41); Albumin Level 4.0 g/dL (3.5-5.2); Alkaline Phosphatase 91 U/L (40-130); Anion Gap 13.5 (5-19); Aspartate Amino Transferase 18 U/L (0-40); Blood Urea Nitrogen 11 mg/dL (6-20); Calcium 8.8 mg/dL (8.5-10.5); Carbon Dioxide 23 mmol/L (22-29); Chloride 102 mmol/L (98-107); Globulin 2.5 g/dL (1.3-4.6); Glucose 129 mg/dL (65-115); Osmolality Calculated 281 mOsm/kg (285-295); Potassium 3.5 mmol/L (3.5-5.1); Sodium 135 mmol/L (136-145); Total Protein 6.5 g/dL (6.6-8.7)
== END 2025-05-14 23:59 | disposition home or self-care (01) ==
PROVIDERS: Internal Medicine Medical Oncology; PCP Nurse Practitioner Family; Visit Provider Radiology Radiation Oncology
DX: Z51.0 Encounter for antineoplastic radiation therapy (principal); C20 Malignant neoplasm of rectum
CPT/HCPCS: 36591; 74018; 77336; 77386; 80053; 85025; 99024

== ENCOUNTER 2025-05-18 13:22 | Oncology outpatient (recurring) (ONCR) | payer MEDICAID, SELFPAY ==
[2023-10-29 14:47] VITALS: BP 148/90; BMI 28.3
--- NOTE | 2025-05-16 13:54 | ONCRAD TMN_ITS ---
Radiation Oncology Weekly Treatment Management Patient: Hanh Carcamo MR#: [id number] : 1965> Attending Physician: Ronn Alas Date of Service: 05/16/2025 Referring Physician(s) : Diagnosis: C20 - Malignant neoplasm of rectum, Diagnosed 03/23/2025 (Active) Radiotherapy to date: Course: Rectum 2024, Treatment Site: Pelvis-rectum, Ref. ID: PTV, Energy: 15X, Dose/Fx (cGy): 200, #Fx: / , Dose Correction (cGy): 0, Total Dose Delivered (cGy): 4,600, Start Date: 04/13/2025, Elapsed Days: 33 Reason for visit: The patient is being seen today as part of their regularly scheduled weekly on treatment visits to assess for acute toxicities from radiotherapy. Review of Systems: Vital Signs: Performed on 05/16/2025 1:20 PM BMI - 32.489 kg/m2 (high), Height - 69 in, Weight - 220 lbs, Temperature - 97 f, Pulse - 92 /min, Respiration - 18 /min, O2 Sat - 98 %, Pain - 0, Fatigue - 0 and BP - 134/ 61 mm(hg)(/low). Physical Exam: Patient's weight is down 2 pounds since last visit. Patient has no problem eating. He denies any blood in the urine blood in the stool. Patient states he is awaiting his surgeon's appointment for evaluation after chemoradiation. Patient to get labs today. Last week's labs were adequate Imaging: Radiation therapy imaging related to accurate target localization (i.e. KV, MV and CBCT) was reviewed. Appropriate changes, if any, were made to ensure treatment accuracy. Plan: Continue XRT and Xeloda. 2 more fractions. Signed by: Ronn Alas 05/16/2025 1:53:10 PM
[2025-05-16 14:08] LABS: Hematocrit 39.3 % (37-53); Hemoglobin 13.40 g/dL (11.27-16.99); Mean Corpuscular HGB Conc 34.1 g/dL (30-55); Mean Corpuscular Hemoglobin 33.5 pg (27-33); Mean Corpuscular Volume 98.3 fl (82-101); Nucleated Red Blood Cells % 0 %; Platelet Count 212 10^3/cmm (157-399); Red Blood Count 4.00 10^6/uL (3.85-5.65); White Blood Count 6.79 10^3/uL (3.29-11.43)
[2025-05-16 14:25] LABS: Alanine Aminotransferase 18 U/L (0-41); Albumin Level 3.9 g/dL (3.5-5.2); Alkaline Phosphatase 88 U/L (40-130); Anion Gap 17.2 (5-19); Blood Urea Nitrogen 7 mg/dL (6-20); Calcium 9.1 mg/dL (8.5-10.5); Carbon Dioxide 23 mmol/L (22-29); Chloride 102 mmol/L (98-107); Globulin 2.8 g/dL (1.3-4.6); Glucose 130 mg/dL (65-115); Osmolality Calculated 286 mOsm/kg (285-295); Potassium 4.2 mmol/L (3.5-5.1); Sodium 138 mmol/L (136-145); Total Protein 6.7 g/dL (6.6-8.7)
[2025-05-16 14:35] LABS: Aspartate Amino Transferase 5 U/L (0-40)
--- NOTE | 2025-05-18 14:57 | N.ONRD TS_ITS ---
Radiation Oncology Treatment Summary Patient: Hanh>Dona MR#: [id number] : 1965> Age: 59> Sex: Male Dictated by: Ronn Alas Date of Service: 05/18/2025 Referring Physician(s) : Diagnosis: C20 - Malignant neoplasm of rectum, Diagnosed 03/23/2025 (Active) Radiotherapy to Date: Course: Rectum 2024, Treatment Site: Pelvis-rectum, Ref. ID: PTV, Energy: 15X, Dose/Fx (cGy): 200, #Fx: 25 / 25, Dose Correction (cGy): 0, Total Dose Delivered (cGy): 5,000, Start Date: 04/13/2025, End Date: 05/18/2025, Elapsed Days: 35 Clinical Summary: The patient tolerated RT well. Patient had significant issues filling his bladder fold. Patient denies any symptoms from treatment. Labs were adequate. Plan: End of treatment today. Continue on the above medication until the skin reaction resolves. Follow up in one month. Signed by: Ronn Alas>05/18/2025 2:55:48 PM <<Signature on File>>
== END 2025-06-13 23:59 | disposition home or self-care (01) ==
PROVIDERS: PCP Nurse Practitioner Family; Visit Provider Internal Medicine Medical Oncology
DX: Z51.0 Encounter for antineoplastic radiation therapy (principal); C20 Malignant neoplasm of rectum; N32.9 Bladder disorder, unspecified; L58.0 Acute radiodermatitis
CPT/HCPCS: 36591; 77336; 77385; 77386; 80053; 85025; 99024

== ENCOUNTER 2025-06-27 14:00 | Oncology outpatient (recurring) (ONCR) | payer MEDICAID, SELFPAY ==
[2023-10-29 14:47] VITALS: BP 148/90; BMI 28.3
--- NOTE | 2025-06-15 13:33 | ONCRAD EPV_ITS ---
Radiation Oncology Established Patient Visit Patient: Taz Schafer [id number] : 1965 Age: 60 Sex: Male Dictated by: Dr. Niharika Romo Date of Service: 06/15/2025 Patient is a 60-year-old gentleman who completed radiation and chemotherapy for rectal cancer 1 month ago. He returns today for his first follow-up. His appetite is good. He has no new aches or pains. He is sleeping well. His energy level is returning. Bowel and bladder habits are returning to normal. His only complaint today is that his hands and feet are still numb from the chemotherapy Referring Physician(s) : Diagnosis: C20 - Malignant neoplasm of rectum, Diagnosed 03/23/2025 (Active) Radiotherapy to Date: Course: Rectum 2024, Treatment Site: Pelvis-rectum, Ref. ID: PTV, Energy: 15X, Dose/Fx (cGy): 200, #Fx: 25 / 25, Dose Correction (cGy): 0, Total Dose Delivered (cGy): 5,000, Start Date: 04/13/2025, End Date: 05/18/2025, Elapsed Days: 35 Current History: Current Medications: Allergies: Current Complaints / Review of Systems: . Vital Signs: Performed on 06/15/2025 12:54 PM BMI - 32.341 kg/m2 (high), Height - 69 in, Weight - 219 lbs, Temperature - 98.2 f, Pulse - 66 /min, Respiration - 17 /min, O2 Sat - 97 %, Pain - 0, Fatigue - 0 and BP - 143/ 88 mm(hg)(high/). Physical Exam: General: Alert and oriented x 3. No acute distress. HEENT: Normocephalic, atraumatic. Extraocular Movements Intact: Pupils Equal, Round, Reactive to Light and Accommodation: Sclerae anicteric. . LUNGS: Respiratory rate is regular nonlabored. HEART: Regular rate and rhythm Performance Status: 100 Lab: None pending. Pathology: Primary, c20 - malignant neoplasm of rectum, Diagnosed 03/23/2025 (active) . 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 He is scheduled for an MRI and a follow-up with the surgeon in [place] later this month. He will also stop at the [facility] and see when he is scheduled again for medical oncology. Will be seeing him back on an as-needed basis or once all of his surgical intervention has been completed we can see him back on a routine basis coordinate with medical oncology. Signed by: 06/15/2025 1:32:02 PM <<Signature on File>> Time spent with patient:20 CPT Code: CPT Code:
[2025-06-27 13:57] LABS: Hematocrit 42.0 % (37-53); Hemoglobin 14.30 g/dL (11.27-16.99); Mean Corpuscular HGB Conc 34.0 g/dL (30-55); Mean Corpuscular Hemoglobin 33.6 pg (27-33); Mean Corpuscular Volume 98.8 fl (82-101); Nucleated Red Blood Cells % 0 %; Platelet Count 217 10^3/cmm (157-399); Red Blood Count 4.25 10^6/uL (3.85-5.65); White Blood Count 7.39 10^3/uL (3.29-11.43)
[2025-06-27 14:19] LABS: Alanine Aminotransferase 16 U/L (0-41); Albumin Level 4.1 g/dL (3.5-5.2); Alkaline Phosphatase 101 U/L (40-130); Anion Gap 16.1 (5-19); Aspartate Amino Transferase 19 U/L (0-40); Blood Urea Nitrogen 13 mg/dL (6-20); Calcium 8.4 mg/dL (8.5-10.5); Carbon Dioxide 23 mmol/L (22-29); Chloride 104 mmol/L (98-107); Globulin 2.3 g/dL (1.3-4.6); Glucose 115 mg/dL (65-115); Magnesium 2.1 mg/dL (1.7-2.3); Osmolality Calculated 289 mOsm/kg (285-295); Potassium 4.1 mmol/L (3.5-5.1); Sodium 139 mmol/L (136-145); Total Protein 6.4 g/dL (6.6-8.7)
== END 2025-07-14 23:59 | disposition home or self-care (01) ==
PROVIDERS: Internal Medicine; PCP Nurse Practitioner Family; Visit Provider Radiology Radiation Oncology
DX: Z53.9 Procedure and treatment not carried out, unspecified reason; C20 Malignant neoplasm of rectum
CPT/HCPCS: 36591; 80053; 83615; 83735; 85025; 96523; 99024

== ENCOUNTER 2025-07-20 14:54 | Outpatient (CLI) | payer MEDICAID, SELFPAY ==
[2023-10-29 14:47] VITALS: BP 148/90; BMI 28.3
[2025-07-20] MEDS: iohexol 350 mg/mL 500 mL Btl (per mL) PO (16:26)
[2025-07-20] MEDS: iohexol 350 mg/mL 500 mL Btl (per mL) IV (16:27)
--- NOTE | 2025-07-20 17:15 | CTR_ITS ---
PROCEDURE INFORMATION: Exam: CT Chest With Contrast; Diagnostic Exam date and time: 07/20/2025 4:02 PM Age: 60 years old Clinical indication: Pain; Chest pressure; Additional info: Rectal cancer TECHNIQUE: Imaging protocol: Diagnostic computed tomography of the chest with contrast. Radiation optimization: All CT scans at this facility use at least one of these dose optimization techniques: automated exposure control; mA and/or kV adjustment per patient size (includes targeted exams where dose is matched to clinical indication); or iterative reconstruction. Contrast material: OMNI 350; Contrast volume: 100 ml; Contrast route: INTRAVENOUS (IV); COMPARISON: CT chest abdpel w/*[id number] 03/28/2025 12:39 PM RADIATION DOSE METRICS: Total DLP (mGy-cm): 1318.24 FINDINGS: Tubes, catheters and devices: Right IJ Port-A-Cath tip is in the mid SVC. Lungs: Unremarkable. No consolidation. No masses. Pleural spaces: Unremarkable. No pneumothorax. No pleural effusion. Heart: Unremarkable. No cardiomegaly. No pericardial effusion. Lymph nodes: Calcified right hilar lymph nodes are again seen. No thoracic lymphadenopathy by size criteria. Vasculature: Unremarkable. No aortic aneurysm. Bones/joints: Unremarkable. No acute fracture. Soft tissues: Unremarkable. PROCEDURE INFORMATION: Exam: CT Abdomen And Pelvis With Contrast Exam date and time: 07/20/2025 4:02 PM Age: 60 years old Clinical indication: Pain; Chest pressure; Additional info: Rectal cancer TECHNIQUE: Imaging protocol: Computed tomography of the abdomen and pelvis with contrast. Radiation optimization: All CT scans at this facility use at least one of these dose optimization techniques: automated exposure control; mA and/or kV adjustment per patient size (includes targeted exams where dose is matched to clinical indication); or iterative reconstruction. Contrast material: OMNI 350; Contrast volume: 100 ml; Contrast route: INTRAVENOUS (IV); COMPARISON: CT chest abdpel w/*[id number] 03/28/2025 12:39 PM RADIATION DOSE METRICS: Total DLP (mGy-cm): 1318.24 FINDINGS: Liver: Tiny subcentimeter hypodensity in the posterior segment right hepatic lobe remaining too small to characterize but is stable and likely represents a cyst. Gallbladder and biliary ducts: Normal. No calcified stones. No ductal dilation. Pancreas: Normal. No ductal dilation. Spleen: Normal. No splenomegaly. Adrenal glands: Normal. No mass. Kidneys and ureters: Normal. No hydronephrosis. Stomach and bowel: Circumferential rectal wall thickening appears similar to the most recent prior exam, again slightly asymmetrically thickened on the left. Mild perirectal fat stranding. Appendix: No evidence of appendicitis. Intraperitoneal space: Unremarkable. No free air. No significant fluid collection. Vasculature: Mild atherosclerotic aortoiliac calcifications. No abdominal aortic aneurysm. Retroaortic left renal vein, normal variant. Lymph nodes: Previously seen mesorectal lymph node of the right of the rectum now measures 6 mm, previously 7 mm. Similar borderline enlarged bilateral inguinal lymph nodes. No new or enlarging lymph nodes in the abdomen/pelvis. Urinary bladder: Unremarkable as visualized. Reproductive: Unremarkable as visualized. Bones/joints: Stable mild anterior compression deformity at L1. Soft tissues: Fat containing inguinal hernias bilaterally. CT/CT chest abdpel w/*[id number] IMPRESSION: No acute findings. IMPRESSION: 1. Persistent circumferential rectal wall thickening, slightly asymmetric on the left as before. Minimally decreased size of a mildly enlarged right mesorectal lymph node. 2. Borderline enlarged bilateral inguinal lymph nodes appear unchanged. 3. Remainder stable.
== END 2025-07-20 14:55 | disposition home or self-care (01) ==
LOC: RAD 14:54
PROVIDERS: PCP Nurse Practitioner Family; Visit Provider Internal Medicine Medical Oncology
DX: C20 Malignant neoplasm of rectum (principal); K62.89 Other specified diseases of anus and rectum; R93.3 Abnormal findings on diagnostic imaging of other parts of digestive tract; I70.0 Atherosclerosis of aorta
CPT/HCPCS: 71260; 74177

== ENCOUNTER 2025-07-20 15:30 | Oncology outpatient (recurring) (ONCR) | payer MEDICAID, SELFPAY ==
[2023-10-29 14:47] VITALS: BP 148/90; BMI 28.3
== END 2025-08-13 23:59 | disposition home or self-care (01) ==
PROVIDERS: PCP Nurse Practitioner Family; Visit Provider Internal Medicine Medical Oncology
DX: Z53.9 Procedure and treatment not carried out, unspecified reason; Z45.2 Encounter for adjustment and management of vascular access device; Z95.828 Presence of other vascular implants and grafts
CPT/HCPCS: 96523; 99214